=== PATIENT | male | born 1940 | race Caucasian/White ===

== ENCOUNTER 2016-09-27 09:24 | Day surgery (SDC) | payer BC, MEDICARE ==
[~2016-09-27 09:24] MED LIST: BESIFLOXACIN HCL 0.6% OPH SUSP 5 ML BOTTLE OD PRN; CHONDR SU A NA/HYALUR INTRAOC KIT (SURGICARE) ONE; CYCLOPENTOLATE 0.2%/PHENYLEPHRINE 1% OPH SOLN 2 ML OD PRN; KETOROLAC TROMETHAMINE 0.45% 4 DROP/0.4 ML DROPERETTE OD PRN; LIDOCAINE 1% INJ-PF (10 MG/ML) 30 ML SDV ONE; PHENYLEPHRINE/KETOROLAC 1%-0.3% 4 ML VIAL ONE; TETRACAINE HCL 0.5% OPH SOLN 0.6 ML DROPERETTE OD PRN; TOBRAMYCIN SULFATE/DEXAMETH OPH OINTMENT 3.5 GM ONE; TROPICAMIDE 1% OPH SOLN 3 ML OD PRN
== END 2016-09-27 10:23 | disposition home or self-care (01) ==
LOC: SC 09:24
PROVIDERS: ATTEND Ophthalmology
DX: R69 Illness, unspecified (principal)
CPT/HCPCS: C9447; J3490

== ENCOUNTER 2016-10-04 09:07 | Day surgery (SDC) | payer MEDICARE ==
[~2016-10-04 09:07] MED LIST changes: -BESIFLOXACIN HCL 0.6% OPH SUSP 5 ML BOTTLE OD PRN; -CYCLOPENTOLATE 0.2%/PHENYLEPHRINE 1% OPH SOLN 2 ML OD PRN; +EPINEPHRINE INJ/PF 1 MG/1 ML AMPULE ONE; +LIDOCAINE 4% INJ/PF (40 MG/ML) 5 ML AMPUL OD PRN; -TETRACAINE HCL 0.5% OPH SOLN 0.6 ML DROPERETTE OD PRN; -TROPICAMIDE 1% OPH SOLN 3 ML OD PRN
[2016-10-04] MEDS: TROPICAMIDE 1% OPH SOLN 3 ML OD PRN ×3 (09:43→10:03)
[2016-10-04] MEDS: CYCLOPENTOLATE 0.2%/PHENYLEPHRINE 1% OPH SOLN 2 ML OD PRN ×3 (09:44→10:03)
[2016-10-04] MEDS: BESIFLOXACIN HCL 0.6% OPH SUSP 5 ML BOTTLE OD PRN ×3 (09:45→10:36)
[2016-10-04] MEDS: TETRACAINE HCL 0.5% OPH SOLN 0.6 ML DROPERETTE OD PRN ×3 (09:46→10:12)
[2016-10-04] MEDS ORDERED: FENTANYL CITRATE INJ/PF 100 MCG/2 ML AMPUL ONE (09:56)
[2016-10-04] MEDS ORDERED: MIDAZOLAM 2 MG/2 ML INJ ONE (09:56)
== END 2016-10-04 11:59 | disposition home or self-care (01) ==
LOC: SC 09:07
PROVIDERS: ATTEND Ophthalmology
PROC: 08RJ3JZ Replacement of Right Lens with Synthetic Substitute, Percutaneous Approach (ICD-10-PCS; principal; 2016-10-04 10:00)
DX: H25.11 Age-related nuclear cataract, right eye (principal); F17.210 Nicotine dependence, cigarettes, uncomplicated; J44.9 Chronic obstructive pulmonary disease, unspecified; I10 Essential (primary) hypertension; Z86.73 Personal history of transient ischemic attack (TIA), and cerebral infarction without residual deficits
CPT/HCPCS: 66984; V2630; J2250; J3490 ×3; A9270; J3010; C9447; 142; J0171

== ENCOUNTER 2016-10-18 09:49 | Day surgery (SDC) | payer BC, MEDICARE, OTHER ==
[~2016-10-18 09:49] MED LIST changes: +BESIFLOXACIN HCL 0.6% OPH SUSP 5 ML BOTTLE OS PRN; -CHONDR SU A NA/HYALUR INTRAOC KIT (SURGICARE) ONE; +CYCLOPENTOLATE 0.2%/PHENYLEPHRINE 1% OPH SOLN 2 ML OS PRN; -EPINEPHRINE INJ/PF 1 MG/1 ML AMPULE ONE; -KETOROLAC TROMETHAMINE 0.45% 4 DROP/0.4 ML DROPERETTE OD PRN; +KETOROLAC TROMETHAMINE 0.45% 4 DROP/0.4 ML DROPERETTE OS PRN; -LIDOCAINE 1% INJ-PF (10 MG/ML) 30 ML SDV ONE; -LIDOCAINE 4% INJ/PF (40 MG/ML) 5 ML AMPUL OD PRN; +MIDAZOLAM 2 MG/2 ML INJ ONE; -PHENYLEPHRINE/KETOROLAC 1%-0.3% 4 ML VIAL ONE; +TETRACAINE HCL 0.5% OPH SOLN 0.6 ML DROPERETTE OS PRN; -TOBRAMYCIN SULFATE/DEXAMETH OPH OINTMENT 3.5 GM ONE; +TROPICAMIDE 1% OPH SOLN 3 ML OS PRN
[2016-10-18] MEDS ORDERED: CHONDR SU A NA/HYALUR INTRAOC KIT (SURGICARE) ONE (09:57)
[2016-10-18] MEDS ORDERED: TOBRAMYCIN SULFATE/DEXAMETH OPH OINTMENT 3.5 GM ONE (09:57)
[2016-10-18] MEDS ORDERED: LIDOCAINE 1% INJ-PF (10 MG/ML) 30 ML SDV ONE (09:57)
[2016-10-18] MEDS ORDERED: PHENYLEPHRINE/KETOROLAC 1%-0.3% 4 ML VIAL ONE (09:57)
== END 2016-10-18 11:39 | disposition home or self-care (01) ==
LOC: SC 09:49
PROVIDERS: ATTEND Ophthalmology
PROC: 08RK3JZ Replacement of Left Lens with Synthetic Substitute, Percutaneous Approach (ICD-10-PCS; principal; 2016-10-18 10:45)
DX: H25.12 Age-related nuclear cataract, left eye (principal); F17.210 Nicotine dependence, cigarettes, uncomplicated; Z96.1 Presence of intraocular lens; J44.9 Chronic obstructive pulmonary disease, unspecified
CPT/HCPCS: 66984; V2630; J2250; J3490 ×3; A9270; C9447; 142

== ENCOUNTER 2017-06-02 12:27 | Emergency (ER) | payer MEDICARE ==
[2017-06-02] MEDS ORDERED: TRAMADOL HCL 50 MG TABLET PO ONE ×2 (13:15→19:59)
--- NOTE | 2017-06-02 13:17 | ER Document Report ---
HPI - HPI Patient complains to provider of: left groin pain Onset: Other - 3 weeks Onset/Duration: Persistent, Better Pain Level: 4 Context: Patient states that he slipped on rocks in his yard 3 weeks ago and fell landing on his right side. Patient states since the fall he has had left groin pain. Patient states the pain has been improving gradually but is still present. Patient does report seeing his primary doctor and having x-rays of this area. Patient denies any urinary problems. Patient denies chest pain, back pain, or abdominal pain. Associated Symptoms: Other - Left groin pain. denies: Headache Exacerbated by: Movement, Walking Relieved by: Denies Similar symptoms previously: No Recently seen / treated by doctor: Yes - ROS ROS below otherwise negative: Yes Systems Reviewed and Negative: Yes All other systems reviewed and negative - CONSTITUTIONAL Constitutional: DENIES: Fever - NEURO Neurology: DENIES: Weakness - CARDIOVASCULAR Cardiovascular: DENIES: Chest pain - RESPIRATORY Respiratory: DENIES: Trouble Breathing, Coughing - GASTROINTESTINAL Gastrointestinal: DENIES: Abdominal Pain, Nausea, Patient vomiting - URINARY Urinary: DENIES: Dysuria - MUSCULOSKELETAL Musculoskeletal: REPORTS: Extremity pain - Left groin. DENIES: Back Pain - DERM Skin Color: Normal Skin Problems: None Past Medical History - General Information source: Patient - Social History Smoking Status: Current Every Day Smoker Smoking Education Provided: Yes Frequency of alcohol use: Occasional Drug Abuse: None Occupation: None Lives with: Alone Family History: Reviewed & Not Pertinent - Past Medical History Cardiac Medical History: Reports: Other - Peripheral edema for the past 6 months Denies: Hx Heart Attack, Hx Hypertension Neurological Medical History: Denies: Hx Cerebrovascular Accident, Hx Seizures GI Medical History: Denies: Hx Hepatitis, Hx Hiatal Hernia, Hx Ulcer Infectious Medical History: Denies: Hx Hepatitis Surgical Hx: Negative Past Surgical History: Denies: Hx Open Heart Surgery, Hx Pacemaker Vertical Provider Document - CONSTITUTIONAL Agree With Documented VS: Yes Exam Limitations: No Limitations General Appearance: WD/WN, No Apparent Distress - INFECTION CONTROL TRAVEL OUTSIDE OF THE [place] IN LAST 30 DAYS: No - HEENT HEENT: Atraumatic, Normocephalic - NECK Neck: Normal Inspection, Supple - RESPIRATORY Respiratory: Breath Sounds Normal, No Respiratory Distress O2 Sat by Pulse Oximetry: 97 - CARDIOVASCULAR Cardiovascular: Regular Rate, Regular Rhythm Pulses: Decreased: Posterior tibial - obtained with doppler bilat, Dorsalis pedis - obtained on r with doppler, absent on left Notes: Patient with bilateral 3+ pedal edema - GI/ABDOMEN Gastrointestinal: Abdomen Soft, Abdomen Non-Tender, No Organomegaly, Abdominal Mass - mass above umbilicus with bruit, Normal Bowel Sounds - REPRODUCTIVE Male Genitalia: Abnormal Inspection - Left scrotal tenderness with palpation, no inguinal lymphadenopathy, no penile drainage or discharge - BACK Back: Normal Inspection. negative: CVA Tenderness-Right, CVA Tenderness-Left Notes: No spinal midline tenderness, step-off, or deformity - MUSCULOSKELETAL/EXTREMETIES Musculoskeletal/Extremeties: MAEW, Tender - Mild tenderness to left anterior hip area, left groin area, no deformity, Edema - bilat pedal. negative: Eccymosis - NEURO Level of Consciousness: Awake, Alert, Appropriate Motor/Sensory: No Motor Deficit, No Sensory Deficit - DERM Integumentary: Warm, Dry, No Rash Course - Re-evaluation Re-evalutation: 06/02/17 15:[address] Avila regarding pt status, advises CT abd/pelvic with iv contrast. Patient updated regarding plan of care. Patient denies any complaints at present. 06/02/17 19:40 Dr Avila to bedside who advised consult with vascular surgery. 06/02/17 20:04 call placed to [facility]. 06/02/17 20:[address] Chong at [facility] and who advises outpatient follow-up in the office this week. Patient's information was provided to Dr. Chong in his office will call patient on Sunday morning with an appointment for this week. Advises giving patient good return precautions that he should return immediately or call 911 for any abdominal pain, back pain, lightheadedness dizziness or any concerning symptoms. Advised patient that he will be seen and have a CT scan and the plan will be to have patient set up for outpatient surgery to address his aneurysm. Does not feel that patient needs to be transferred as he is currently asymptomatic without any evidence of leaking. 06/02/17 22:00 Discussed plan of care with patient as well as his neighbor who is offering to stay with patient until his family can come into town and help him. Patient able to ambulate with minimal assist to the chair. Patient states he has a walker at home that he has been using. Patient continues without any chest pain , abdominal pain or back pain. Patient and his friend educated at length on worsening symptoms that patient should return immediately for and call 911 for. Patient encouraged to follow-up with a urologist as well for further evaluation of his epididymitis. Patient given contact information for Dr. Chong and advised that if his office staff do not speak with him on Sunday that patient should call Dr. Chong's office. Patient continues to deny any abdominal pain, chest pain, back pain, lightheadedness or dizziness. Patient only complains of left groin pain with ambulation. - Vital Signs Vital signs: Temp Pulse Resp BP Pulse Ox 98.9 F 74 18 129/69 H 97 06/02/17 12:37 06/02/17 12:37 06/02/17 12:37 06/02/17 12:37 06/02/17 12:37 - Laboratory Result Diagrams: 06/02/17 16:21 06/02/17 17:39 Laboratory results interpreted by me: 06/02/17 20:24 Labs- Entire Visit 06/02/17 06/02/17 06/02/17 15:10 16:21 16:21 WBC 7.4 RBC 4.65 Hgb 14.6 Hct 43.2 MCV 93 MCH 31.3 MCHC 33.8 RDW 14.0 Plt Count 186 Seg Neutrophils % 63.7 Lymphocytes % 23.6 Monocytes % 8.5 Eosinophils % 3.2 Basophils % 1.0 Absolute Neutrophils 4.7 Absolute Lymphocytes 1.7 Absolute Monocytes 0.6 Absolute Eosinophils 0.2 Absolute Basophils 0.1 Sodium Cancelled Potassium Cancelled Chloride Cancelled Carbon Dioxide Cancelled Anion Gap Cancelled BUN Cancelled Creatinine Cancelled Est GFR ( Amer) Cancelled Est GFR (Non-Af Amer) Cancelled Glucose Cancelled Calcium Cancelled Total Bilirubin Cancelled Direct Bilirubin Cancelled Neonat Total Bilirubin Cancelled Neonat Direct Bilirubin Cancelled Neonat Indirect Bili Cancelled AST Cancelled ALT Cancelled Alkaline Phosphatase Cancelled Total Protein Cancelled Albumin Cancelled Urine Color YELLOW Urine Appearance SLIGHTLY-CLOUDY Urine pH 5.0 Ur Specific [place] 1.026 Urine Protein 100 H Urine Glucose (UA) NEGATIVE Urine Ketones NEGATIVE Urine Blood MODERATE H Urine Nitrite NEGATIVE Urine Bilirubin NEGATIVE Urine Urobilinogen 2.0 H Ur Leukocyte Esterase NEGATIVE Urine WBC (Auto) 3 Urine RBC (Auto) 8 Urine Bacteria (Auto) TRACE Squamous Epi Cells Auto 1 Urine Mucus (Auto) MANY Urine Ascorbic Acid NEGATIVE 06/02/17 17:39 WBC RBC Hgb Hct MCV MCH MCHC RDW Plt Count Seg Neutrophils % Lymphocytes % Monocytes % Eosinophils % Basophils % Absolute Neutrophils Absolute Lymphocytes Absolute Monocytes Absolute Eosinophils Absolute Basophils Sodium 140.7 Potassium 4.5 Chloride 101 Carbon Dioxide 30 Anion Gap 10 BUN 22 H Creatinine 0.87 Est GFR ( Amer) > 60 Est GFR (Non-Af Amer) > 60 Glucose 94 Calcium 10.0 Total Bilirubin 0.5 Direct Bilirubin 0.3 Neonat Total Bilirubin Not Reportable Neonat Direct Bilirubin Not Reportable Neonat Indirect Bili Not Reportable AST 24 ALT 22 Alkaline Phosphatase 115 Total Protein 8.2 Albumin 4.1 Urine Color Urine Appearance Urine pH Ur Specific [place] Urine Protein Urine Glucose (UA) Urine Ketones Urine Blood Urine Nitrite Urine Bilirubin Urine Urobilinogen Ur Leukocyte Esterase Urine WBC (Auto) Urine RBC (Auto) Urine Bacteria (Auto) Squamous Epi Cells Auto Urine Mucus (Auto) Urine Ascorbic Acid - Diagnostic Test Radiology reviewed: Reports reviewed Discharge - Discharge Clinical Impression: Left groin pain, Epididymitis, Elevated blood pressure reading Abdominal aortic aneurysm Qualifiers: Presence of rupture: without rupture Qualified Code(s): I71.4 - Abdominal aortic aneurysm, without rupture Condition: Stable Disposition: HOME, SELF-CARE Instructions: Aortic Aneurysm ([facility]), Doxycycline ([facility]), Epididymitis ([facility]), Rocephin ([facility]) Additional Instructions: Return immediately for any new or worsening symptoms Followup with your primary care provider, call tomorrow to make a followup appointment Dr Chong, vascular surgeon at [facility], have his office staff call you on Sunday to make an appointment for this week. He states that he will have you have a repeat CT scan and will evaluate you that day and will make plans for outpatient surgery to repair your aneurysm. His office staff will give you additional information when they call you Sunday. It is important that if you are having any abdominal pain, back pain, lightheadedness, dizziness or any concerning symptoms that he go to the emergency department or call 911. Dr Alejandro Chong [address] [place] [phone] Your ultrasound additionally showed that he had epididymitis, follow-up with a urologist for further evaluation of this. Prescriptions: Doxycycline Hyclate 100 mg PO BID #20 capsule Tramadol HCl [Ultram 50 mg Tablet] 50 mg PO ASDIR PRN #20 tablet PRN Reason: Forms: Elevated Blood Pressure Referrals: AKHIL ROCHA PA [PHYSICIAN TAKE UP OPERATOR] - Follow up as needed [facility] [Provider Group] - Follow up as needed
--- NOTE | 2017-06-02 14:43 | RADIOLOGY REPORT (SQ) ---
EXAM DESCRIPTION: U/S SCROTUM W/DOPPLER COMPLETED DATE/TIME: 06/02/2017 2:35 pm REASON FOR STUDY: left scrotal pain COMPARISON: None. TECHNIQUE: Static and realtime bourgeois scale imaging of the scrotum and testes. Selected color Doppler and spectral images recorded to document blood flow. LIMITATIONS: None. FINDINGS: RIGHT: TESTICLE: Normal size. Normal echotexture. Normal blood flow. No mass. EPIDIDYMIS: Normal. HYDROCELE OR VARICOCELE: No. HERNIA OR EXTRA-TESTICULAR MASS: No. OTHER: No other significant finding. LEFT: TESTICLE: Normal size. Normal echotexture. Normal blood flow. No mass. EPIDIDYMIS: Heterogeneous echo pattern with prominent vessels. HYDROCELE OR VARICOCELE: No. HERNIA OR EXTRA-TESTICULAR MASS: No. OTHER: No other significant finding. IMPRESSION: No testicular mass or torsion. Left epididymitis. TECHNICAL DOCUMENTATION: JOB ID: [id number] [employer]- All Rights Reserved
[2017-06-02 15:36] LABS: APPEARANCE,URINE SLIGHTLY-CLOUDY; BILIRUBIN,URINE NEGATIVE (NEGATIVE); COLOR,URINE YELLOW; GLUCOSE, URINE NEGATIVE (NEGATIVE); KETONES,URINE NEGATIVE (NEGATIVE); LEUKOCYTE ESTERASE,URINE NEGATIVE (NEGATIVE); NITRITE,URINE NEGATIVE (NEGATIVE); PROTEIN,URINE 100 mg/dL (NEGATIVE); URINE SPECIFIC GRAVITY 1.026
--- NOTE | 2017-06-02 15:43 | RADIOLOGY REPORT (SQ) ---
EXAM DESCRIPTION: HIP LEFT AP/LATERAL COMPLETED DATE/TIME: 06/02/2017 3:26 pm REASON FOR STUDY: fall L hip COMPARISON: None. NUMBER OF VIEWS: Two views. TECHNIQUE: AP pelvis and additional frog-leg view of the left hip. LIMITATIONS: None. FINDINGS: MINERALIZATION: Normal. LEFT HIP: No fracture or dislocation. No worrisome bone lesions. RIGHT HIP: No fracture or dislocation. No worrisome bone lesions. PUBIS AND ISCHIUM: No fracture. PELVIS: No fracture. SACRUM: No fracture or dislocation. No worrisome bone lesions. LOWER LUMBAR SPINE: Degenerative changes SOFT TISSUES: Curvilinear calcification visualized partially over the lower abdomen. Highly suspicio us for a large abdominal aortic aneurysm. OTHER: No other significant finding. IMPRESSION: No acute fracture. Possible large abdominal aortic aneurysm. COMMENT: Pertinent findings on the imaging study reported as a CRITICAL RESULT to STONE CRUSHER OPERATOR in the ED at15 :37 on 06/02/2017. Category of Critical Result: Possible large abdominal aortic aneurysm. TECHNICAL DOCUMENTATION: JOB ID: [id number] [employer] All Rights Reserved
[2017-06-02] MEDS ORDERED: CEFTRIAXONE INJ 250 MG VIAL IV ONE (15:47)
[2017-06-02 16:41] LABS: ABSOLUTE BASOPHILS # (AUTO) 0.1 10^3/uL (0.0-0.2); ABSOLUTE EOSINOPHILS # (AUTO) 0.2 10^3/uL (0.0-0.6); ABSOLUTE LYMPHOCYTES (AUTO) 1.7 10^3/uL (0.5-4.7); ABSOLUTE MONOCYTES (AUTO) 0.6 10^3/uL (0.1-1.4); ABSOLUTE NEUT (AUTO) 4.7 10^3/uL (1.7-8.2); EOSINOPHILS % (AUTO) 3.2 % (0-6); HEMATOCRIT 43.2 % (37.9-51.0); HEMOGLOBIN 14.6 g/dL (13.5-17.0); LYMPHOCYTES % (AUTO) 23.6 % (13-45); MEAN CORPUSCULAR HEMOGLOBIN 31.3 pg (27.0-33.4); MEAN CORPUSCULAR HGB CONC 33.8 g/dL (32.0-36.0); MEAN CORPUSCULAR VOLUME 93 fl (80-97); MONOCYTES % (AUTO) 8.5 % (3-13); PLATELET COUNT 186 10^3/uL (150-450); RED BLOOD COUNT 4.65 10^6/uL (4.35-5.55); SEGMENTED NEUTROPHILS % (AUTO) 63.7 % (42-78); TOTAL CELLS COUNTED % (AUTO) 100 %; WHITE BLOOD COUNT 7.4 10^3/uL (4.0-10.5)
[2017-06-02 18:12] LABS: ALBUMIN 4.1 g/dL (3.5-5.0); BILIRUBIN,DIRECT 0.3 mg/dL (0.0-0.4); BILIRUBIN,TOTAL 0.5 mg/dL (0.2-1.3); BLOOD UREA NITROGEN 22 mg/dL (7-20); CARBON DIOXIDE 30 mmol/L (22-30); GLUCOSE 94 mg/dL (75-110); TOTAL PROTEIN 8.2 g/dL (6.3-8.2)
[2017-06-02 18:14] LABS: ALANINE AMINOTRANSFERASE 22 U/L (21-72); ALKALINE PHOSPHATASE 115 U/L (38-126); ASPARTATE AMINO TRANSFERASE 24 U/L (17-59)
[2017-06-02 18:15] LABS: ANION GAP 10 (5-19); CHLORIDE 101 mmol/L (98-107); POTASSIUM 4.5 mmol/L (3.6-5.0); SODIUM 140.7 mmol/L (137-145)
--- NOTE | 2017-06-02 19:17 | RADIOLOGY REPORT (SQ) ---
EXAM DESCRIPTION: CTA ABDOMEN/PELVIS W WO COMPLETED DATE/TIME: 06/02/2017 6:42 pm REASON FOR STUDY: 39; eval aorta COMPARISON: Left hip radiograph 06/02/2017 TECHNIQUE: CT scan of the abdominal aorta extending to the iliac bifurcation performed with and with out intravenous contrast using helical scanning technique with dynamic intravenous contrast injection . Images reviewed with lung, soft tissue, and bone windows. Reconstructed coronal and sagittal MPR im ages reviewed. All images stored on PACS. Advanced 3D imaging as volume rendering, MIPS, SSD performed? yes All CT scanners at this facility use dose modulation, iterative reconstruction, and/or weight based d osing when appropriate to reduce radiation dose to as low as reasonably achievable (ALARA). [facility]: Dose Right [facility]: CareDose [facility]: Dose Right [facility]: Teradose 4D [facility]: HelloNature CONTRAST TYPE AND DOSE: contrast/concentration: Isovue 370.00 mg/ml; Total Contrast Delivered: 100.0 ml; Total Saline Delivered: 90.0 ml RENAL FUNCTION: BUN 22; creatinine 0.87 LIMITATIONS: None. FINDINGS: NON-CONTRASTED IMAGING: Diffuse vascular calcifications to include major visceral branches . No significant renal or bladder calcifications. No other significant organ calcifications. POST-CONTRAST IMAGING: AORTA AND VESSELS: A large infrarenal saccular abdominal aortic aneurysm is present measuring 9.2 x 8 .1 cm in greatest axial dimension. This extends into the bilateral iliac artery is. There is no ishaan dence of retroperitoneal hemorrhage/leak. The celiac, superior mesenteric, and renal arteries are ea ch appropriately opacified. The internal and external iliac arteries are likewise appropriately opac ified. LUNG BASES: No significant findings. No nodules or infiltrates. LIVER: Incidental note is made of a right hepatic hemangioma measuring on the order of 3.1 x 2.8 cm SPLEEN: Normal size. No focal lesions. PANCREAS: No masses. No significant calcifications. No adjacent inflammation or peripancreatic fluid collections. Pancreatic duct not dilated. GALLBLADDER: No identified stones by CT criteria. No inflammatory changes to suggest cholecystitis. ADRENAL GLANDS: The adrenal glands each demonstrate nodular thickening with relatively decreased atte nuation, possibly on the basis of lipid rich adenomas. This can be better evaluated with dedicated C T or MR imaging. RIGHT KIDNEY AND URETER: No mass, calculi or urinary tract obstruction. LEFT KIDNEY AND URETER: No mass, calculi or urinary tract obstruction. RETROPERITONEUM: No retroperitoneal adenopathy, hemorrhage or masses. BOWEL AND PERITONEAL CAVITY: No masses or inflammatory changes. No free fluid or peritoneal masses. APPENDIX: Not visualized. ABDOMINAL WALL: No masses. No hernias. BONY STRUCTURES: Degenerative changes are seen of the spine and hips. No fractures. 3-D IMAGING: Confirms the above findings. OTHER: No other significant finding. IMPRESSION: 9.2 x 8.1 cm saccular infrarenal abdominal aortic aneurysm. No evidence of retroperiton eal hemorrhage/leak. Chronic and incidental findings as detailed above. TECHNICAL DOCUMENTATION: JOB ID: [id number] Quality ID # [id number]: Final reports with documentation of one or more dose reduction techniques (e.g., Au tomated exposure control, adjustment of the mA and/or kV according to patient size, use of iterative reconstruction technique) 2010 [employer]- All Rights Reserved
--- NOTE | 2017-06-02 19:47 | ER Document Report ---
Doctor's Note Notes: 06/02/17 19:44 I was asked to see this patient in consultation. In summary, this is a 76-year- old male who presents today status post fall 2 weeks ago. Patient states he was in his backyard staying on some rocks when he lost his balance. He landed on his left hip. Patient states he has been having some pain to his left groin since that time. Patient denies hitting his head. Patient denies any weakness or numbness of his legs. Patient does state 2 months ago he started to have some edema to bilateral lower extremities. He saw his primary care physician who put him on a "fluid pill". Patient denies any abdominal pain, lightheadedness, dizziness, weakness or numbness. On examination the patient's head is traumatic normocephalic. Neck is soft and supple. Heart and lung examination is unremarkable. Patient's abdomen has a palpable mass with a bruit consistent with an abdominal aortic aneurysm. There is no tenderness to palpation of the abdomen. Patient's back shows no tenderness or flank pain. exam shows no obvious masses, inguinal bruits, penile lesions, with some very mild tenderness to the left testicle region without swelling or scrotal erythema. Patient has some tenderness to palpation of the left medial hamstring at the attachment site proximally. No swelling, erythema, or induration. Patient has 2+ pitting edema to bilateral lower extremities. Patient does have pain upon flexion of the hip. No low back pain present. Given the above history and physical examination the STEAM PIPE FITTER performed x-rays as indicated. No acute fractures noted. Radiologist then noticed a possible aortic aneurysm. CT scan of the abdomen and pelvis as recorded. Patient still has no tenderness to palpation of the abdomen. He has no known history of aneurysms in his past. The patient's in the groin musculature is tender to palpation. No bruits to the left inguinal region. Patient has no distal tenderness to his lower extremities consistent with ischemia. Given the extent and size of this lesion, we will call vascular surgery for evaluation. Other labs and ultrasound is recorded.
[2017-06-02] MEDS ORDERED: NORMAL SALINE 1000 ML 500 ML IV ONE (19:58)
[2017-06-02 20:13] VITALS: BP 152/86
[2017-06-02] MEDS ORDERED: CIPROFLOXACIN HCL 500 MG TABLET PO ONE (20:25)
[2017-06-02] MEDS ORDERED: DOXYCYCLINE HYCLATE 100 MG TABLET PO ONE (20:33)
== END 2017-06-02 22:14 | disposition home or self-care (01) ==
LOC: ER 12:27
DX: I71.4 Abdominal aortic aneurysm, without rupture (principal); N45.1 Epididymitis; R03.0 Elevated blood-pressure reading, without diagnosis of hypertension; R10.30 Lower abdominal pain, unspecified; R60.0 Localized edema; F17.200 Nicotine dependence, unspecified, uncomplicated; Z71.6 Tobacco abuse counseling; Z91.81 History of falling
CPT/HCPCS: 99284; 96361; 96374; 36415; 87086; 85025; 80053; 81001; 73502; 76870; 93976; 74174; A9270 ×2; J7030; J0696

== ENCOUNTER 2017-08-17 09:35 | Inpatient (IN) | payer MEDICARE ==
[2017-08-17] MEDS ORDERED: DEXTROSE 50%-WATER 25 GM/50 ML DISP.SYRIN IV ONE (09:49)
[2017-08-17] MEDS ORDERED: DEXTROSE 40% GEL 15 GM TUBE ONE (09:49)
[2017-08-17] MEDS ORDERED: RINGERS SOLUTION,LACTATED 1,000 ML IV ONE (10:29)
--- NOTE | 2017-08-17 10:40 | ER Document Report ---
ED General - General Chief Complaint: General Weakness Stated Complaint: ALTERED MENTAL STATUS Time Seen by Provider: 08/17/17 10:11 Notes: Patient brought in by EMS after having been found by a frien to be unable to stand or walk and exceedingly weak. Friend checks on this patient about once a week, either in person or by phone. She went to check on him this morning and found him sitting in a chair, having urinated all over himself. He was unable to stand or walk or use his walker. He normally can walk with a walker and sometimes even walk without the walker. Patient denies any vomiting or diarrhea. Friend says she cleaned him up and he had had a bowel movement. Denies any abdominal pains, chest pains, shortness of breath or difficulty breathing, headache. Not sure if he has had any fever. Friend noted that he is having twitching of the right leg at that he has never had before. Also notes that he has a lesion on the right neck that is painful. Finally, both of his legs are swollen and the left one is erythematous from the mid lower leg down through the entire foot which is painful to touch or move. The right foot is swollen, but no erythema or pain to examine. Patient had an abdominal aortic aneurysm stented a couple of months ago at [facility]. All has gone well since that procedure and he went to rehab and then returned home about a month and a half ago. He has been doing well, according to the friend, and was his usual normal self 2 weeks ago. TRAVEL OUTSIDE OF THE [place] IN LAST 30 DAYS: No - Related Data Allergies/Adverse Reactions: No Known Allergies Allergy (Verified 06/02/17 12:27) Past Medical History - Social History Smoking Status: Current Some Day Smoker Frequency of alcohol use: Occasional Drug Abuse: None Family History: Reviewed & Not Pertinent Patient has suicidal ideation: No Patient has homicidal ideation: No - Past Medical History Cardiac Medical History: Reports: Hx Hypertension Pulmonary Medical History: Reports: Hx Asthma Neurological Medical History: Denies: Hx Cerebrovascular Accident, Hx Seizures Endocrine Medical History: Denies: Hx Diabetes Mellitus Type 1, Hx Diabetes Mellitus Type 2 Renal/ Medical History: Denies: Hx Benign Prostatic Hyperplasia Past Surgical History: Reports: Hx Abdominal Surgery - Stents and abdominal aortic aneurysm put in about 2 months ago.. Denies: Hx Open Heart Surgery - triple A repair, Hx Pacemaker Review of Systems - Review of Systems Notes: REVIEW OF SYSTEMS: CONSTITUTIONAL : Denies fever. Complains of generalized weakness. Patient is not a very reliable historian and is difficult to hear him because he speaks so quietly and softly. EENT: Denies eye, ear, nose or mouth or throat pain or other symptoms. CARDIOVASCULAR: Denies chest pain. RESPIRATORY: Denies cough, chest congestion, or shortness of breath. GASTROINTESTINAL: Denies abdominal pain or nausea, vomiting, or diarrhea. GENITOURINARY: Denies difficulty or painful urinating, urinary frequency, blood in urine. MUSCULOSKELETAL: Denies back or neck pain. Denies joint pain or swelling. Erythema from the mid left lower leg through the entire left foot and toes which is tender to touch or move. SKIN: Denies rash or skin lesions. Erythema left lower leg and particularly left foot. NEUROLOGICAL: Denies LOC or altered mental status. Denies headache. Denies sensory loss or motor deficits. No lateralizing signs. ALL OTHER SYSTEMS REVIEWED AND NEGATIVE. Physical Exam - Vital signs Vitals: Resp BP Pulse Ox 18 148/88 H 99 08/17/17 10:01 08/17/17 10:01 08/17/17 10:01 Interpretation: Normal, Hypertensive - Minimal - Notes Notes: PHYSICAL EXAMINATION: GENERAL: Ill-appearing, but in no acute distress. Vital signs are all essentially normal with a slight elevation of blood pressure. HEAD: Atraumatic, normocephalic. EYES: Pupils equal round and reactive to light, extraocular movements intact. ENT: oropharynx clear without exudates. Moist mucous membranes. NECK: Normal range of motion, supple. Right side of neck has about a 1 cm? Skin tag which looks like the top portion of it has been scratched off and it is black in color. Very tender to touch. LUNGS: Breath sounds clear and equal bilaterally. HEART: Regular rate and rhythm with +2/6 murmurs. Bilateral +2 edema of the lower extremities. ABDOMEN: Soft, nontender. No guarding or rebound. No masses. No bruits heard. BACK: No tenderness throughout entire back. EXTREMITIES: Normal range of motion without pain except for left lower leg and especially the left foot which is swollen, erythematous, warm to the touch, and very painful to touch as well. Patient denies having history of gout. Denies any injury to that foot. Good capillary refill of the toes of both feet. NEUROLOGICAL: Very soft, barely audible speech, unable to stand or walk. Occasional twitch noted of the right leg. Normal sensory, motor, and reflex exams. Awake, alert, and oriented x3. PSYCH: Normal mood, normal affect. SKIN: Warm, dry, no rashes. Course - Vital Signs Vital signs: Temp Pulse Resp BP Pulse Ox 97.5 F 76 17 162/78 H 98 08/17/17 10:10 08/17/17 10:10 08/17/17 10:10 08/17/17 10:10 08/17/17 10:10 - Laboratory Result Diagrams: 08/17/17 09:47 08/17/17 09:47 Laboratory results interpreted by me: 08/17/17 08/17/17 08/17/17 09:47 09:47 09:47 RBC 4.10 L Hgb 12.6 L Hct 37.7 L BUN 29 H POC Glucose 49 L Uric Acid 8.9 H Alkaline Phosphatase 149 H Creatine Kinase 407 H CK-MB (CK-2) Total Protein 8.7 H Urine Blood 08/17/17 08/17/17 09:47 11:20 RBC Hgb Hct BUN POC Glucose Uric Acid Alkaline Phosphatase Creatine Kinase CK-MB (CK-2) 5.13 H Total Protein Urine Blood LARGE H - Diagnostic Test Radiology reviewed: Image reviewed, Reports reviewed - CT scan of the brain shows no acute processes. No stroke. Radiology results interpreted by me: 08/17/17 12:37 X-ray of the chest shows no acute changes or pneumonia. X-ray of the left foot shows chronic arthritic changes, but no fractures or dislocations. Discharge - Discharge Clinical Impression: Cellulitis of left foot, Gout, Dehydration, Elevated CPK Disposition: ADMITTED INPATIENT Admitting Provider: Hospitalist Unit Admitted: Medical Floor
[2017-08-17 10:53] LABS: ABSOLUTE BASOPHILS # (AUTO) 0.1 10^3/uL (0.0-0.2); ABSOLUTE EOSINOPHILS # (AUTO) 0.1 10^3/uL (0.0-0.6); ABSOLUTE MONOCYTES (AUTO) 0.9 10^3/uL (0.1-1.4); ABSOLUTE NEUT (AUTO) 4.1 10^3/uL (1.7-8.2); EOSINOPHILS % (AUTO) 1.6 % (0-6); HEMATOCRIT 37.7 % (37.9-51.0); HEMOGLOBIN 12.6 g/dL (13.5-17.0); LYMPHOCYTES % (AUTO) 27.9 % (13-45); MEAN CORPUSCULAR HEMOGLOBIN 30.6 pg (27.0-33.4); MEAN CORPUSCULAR HGB CONC 33.3 g/dL (32.0-36.0); MEAN CORPUSCULAR VOLUME 92 fl (80-97); MONOCYTES % (AUTO) 12.5 % (3-13); PLATELET COUNT 207 10^3/uL (150-450); RED CELL DISTRIBUTION WIDTH 13.3 % (11.5-14.0); TOTAL CELLS COUNTED % (AUTO) 100 %; WHITE BLOOD COUNT 7.2 10^3/uL (4.0-10.5)
--- NOTE | 2017-08-17 11:05 | RADIOLOGY REPORT (SQ) ---
EXAM DESCRIPTION: CT HEAD WITHOUT COMPLETED DATE/TIME: 08/17/2017 10:51 am REASON FOR STUDY: Weak, unable to walk, twitching right leg COMPARISON: None. TECHNIQUE: Axial images acquired through the brain without intravenous contrast. Images reviewed wi th bone, brain and subdural windows. Images stored on PACS. All CT scanners at this facility use dose modulation, iterative reconstruction, and/or weight based d osing when appropriate to reduce radiation dose to as low as reasonably achievable (ALARA). [facility]: Dose Right [facility]: CareDose [facility]: Dose Right [facility]: Teradose 4D [facility]: Verix RADIATION DOSE: CT Rad equipment meets quality standard of care and radiation dose reduction techniq ues were employed. CTDIvol: 60.1 mGy. DLP: 1292 mGy-cm.mGy. LIMITATIONS: None. FINDINGS: VENTRICLES: Prominent. CEREBRUM: No masses. No hemorrhage. No midline shift. Areas of low density in the white matter mos t likely due to chronic micro-vascular ischemic change. No evidence for acute infarction. CEREBELLUM: No masses. No hemorrhage. No alteration of density. No evidence for acute infarction. EXTRAAXIAL SPACES: Age-related involutional change. No fluid collections. No masses. ORBITS AND GLOBE: No intra- or extraconal masses. Normal contour of globe without masses. CALVARIUM: No fracture. PARANASAL SINUSES: No fluid or mucosal thickening. SOFT TISSUES: No mass or hematoma. OTHER: No other significant finding. IMPRESSION: CHRONIC CHANGES OF ATROPHY AND MICROVASCULAR ISCHEMIA. NO ACUTE PROCESS. EVIDENCE OF ACUTE STROKE: NO. TECHNICAL DOCUMENTATION: JOB ID: [id number] Quality ID # [id number]: Final reports with documentation of one or more dose reduction techniques (e.g., Au tomated exposure control, adjustment of the mA and/or kV according to patient size, use of iterative reconstruction technique) 2010 [employer]- All Rights Reserved Reading location - IP/workstation name: [email or web address]
[2017-08-17 11:17] LABS: ALANINE AMINOTRANSFERASE 29 U/L (21-72); ALBUMIN 4.1 g/dL (3.5-5.0); ALKALINE PHOSPHATASE 149 U/L (38-126); ANION GAP 10 (5-19); ASPARTATE AMINO TRANSFERASE 36 U/L (17-59); BILIRUBIN,DIRECT 0.4 mg/dL (0.0-0.4); BILIRUBIN,TOTAL 0.6 mg/dL (0.2-1.3); BLOOD UREA NITROGEN 29 mg/dL (7-20); CALCIUM 9.8 mg/dL (8.4-10.2); CARBON DIOXIDE 30 mmol/L (22-30); CHLORIDE 103 mmol/L (98-107); CREATINE KINASE 407 U/L (55-170); GLUCOSE 98 mg/dL (75-110); LIPASE 256.8 U/L (23-300); POTASSIUM 4.1 mmol/L (3.6-5.0); SODIUM 142.9 mmol/L (137-145); TOTAL PROTEIN 8.7 g/dL (6.3-8.2); URIC ACID 8.9 mg/dL (3.5-8.5)
[2017-08-17 11:43] LABS: CREATINE KINASE MB 5.13 ng/mL (<4.55); TROPONIN I < 0.012 ng/mL
[2017-08-17 11:51] LABS: APPEARANCE,URINE CLEAR; BILIRUBIN,URINE NEGATIVE (NEGATIVE); COLOR,URINE STRAW; GLUCOSE, URINE NEGATIVE (NEGATIVE); KETONES,URINE NEGATIVE (NEGATIVE); LEUKOCYTE ESTERASE,URINE NEGATIVE (NEGATIVE); NITRITE,URINE NEGATIVE (NEGATIVE); PROTEIN,URINE NEGATIVE (NEGATIVE); URINE SPECIFIC GRAVITY 1.006; UROBILINOGEN,URINE NEGATIVE mg/dL (<2.0)
--- NOTE | 2017-08-17 12:13 | RADIOLOGY REPORT (SQ) ---
EXAM DESCRIPTION: FOOT LEFT COMPLETE COMPLETED DATE/TIME: 08/17/2017 11:33 am REASON FOR STUDY: Painful, red, swollen foot COMPARISON: None. NUMBER OF VIEWS: Three views. TECHNIQUE: AP, lateral and oblique radiographic images acquired of the left foot. LIMITATIONS: None. FINDINGS: MINERALIZATION: There is osteopenia. BONES: No acute fracture or dislocation. No worrisome bone lesions. JOINTS: There are degenerative changes in the 1st tarsal metatarsal joint. There is joint space narr owing and subchondral sclerosis. There is osteophytic spurring. SOFT TISSUES: There is diffuse soft tissue swelling dorsally. OTHER: No other significant finding. IMPRESSION: Osteopenia. Degenerative changes in the 1st metatarsal phalangeal joint. Soft tissue s welling dorsally. No acute fracture. TECHNICAL DOCUMENTATION: JOB ID: [id number] [employer]- All Rights Reserved Reading location - IP/workstation name: [email or web address]
--- NOTE | 2017-08-17 12:13 | RADIOLOGY REPORT (SQ) ---
EXAM DESCRIPTION: CHEST PA/LAT COMPLETED DATE/TIME: 08/17/2017 11:33 am REASON FOR STUDY: Altered mental status, swelling of legs COMPARISON: None. EXAM PARAMETERS: NUMBER OF VIEWS: two views TECHNIQUE: Digital Frontal and Lateral radiographic views of the chest acquired. RADIATION DOSE: NA LIMITATIONS: none FINDINGS: LUNGS AND PLEURA: The lungs are mildly hyperexpanded. There are no infiltrates or effusio ns. There is no mass. MEDIASTINUM AND HILAR STRUCTURES: No masses or contour abnormalities. HEART AND VASCULAR STRUCTURES: Heart normal size. No evidence for failure. BONES: No acute findings. HARDWARE: None in the chest. OTHER: No other significant finding. IMPRESSION: Chronic lung changes with no acute cardiopulmonary disease. COMMENT: There is a demographics mismatch warning TECHNICAL DOCUMENTATION: JOB ID: [id number] [employer]- All Rights Reserved Reading location - IP/workstation name: [email or web address]
--- NOTE | 2017-08-17 13:04 | EKG REPORT ---
SEVERITY:- ABNORMAL ECG - SINUS OR ECTOPIC ATRIAL RHYTHM RBBB AND LAFB : Confirmed by: Navjot Hunt MD 17-Aug-2017 13:03:38
[2017-08-17] MEDS ORDERED: ONDANSETRON HCL INJ/PF 4 MG/2 ML SDV IV PRN (13:08)
[2017-08-17] MEDS ORDERED: ACETAMINOPHEN 325 MG TABLET PO PRN (13:08)
[2017-08-17] MEDS ORDERED: OXYCODONE-ACETAMINOPHEN 5-325 MG TABLET PO PRN (13:08)
[2017-08-17] MEDS ORDERED: ALBUTEROL SULFATE 0.083% NEB 2.5 MG/3 ML AMPUL NEB PRN (13:08)
[2017-08-17] MEDS ORDERED: NORMAL SALINE 1000 ML 1,000 ML IV PRN (13:19)
[2017-08-17] MEDS ORDERED: CEFTRIAXONE 1 GM/D5W RTU 1 GM/50 ML RTUPB IV SCH (14:00)
[2017-08-17] MEDS: LORAZEPAM 1 MG TABLET PO SCH ×2 (14:18→21:36)
[2017-08-17] MEDS: IPRATROPIUM/ALBUTEROL 0.5-2.5 MG/3 ML AMPUL NEB SCH ×2 (14:18→20:55)
[2017-08-17] MEDS: HEPARIN SOD (PORCINE) 5,000 UNIT/ML 1 ML SYRINGE SUBCUT SCH ×2 (14:18→21:36)
[2017-08-17] MEDS: CEFTRIAXONE SODIUM 1,000 MG in NORMAL SALINE 100 ML IV SCH (14:26)
--- NOTE | 2017-08-17 15:36 | PDOC H&P ---
History of Present Illness Admission Date/PCP: 08/17/17 13:40 No PCP Patient complains of: Unable to obtain through patient due to mental status History of Present Illness: MANUEL FUENTES is a 77 year old male was brought into emergency room by his close female friend who checks on him on a regular basis. Accordingly when she went to check on him he was sitting on the sofa. She was unable to tell how long he had been in those circumstances. She went ahead and cleaned him up the patient and then he defecated on. She prompted to bring the patient to emergency room to be checked. Upon evaluation in emergency room there were some multiple complaints including redness and swelling of the left leg. In addition history retrieval through patient was difficult due to mental status. The hospitalist service was consulted and prompted to admit for further management Past Medical History Cardiac Medical History: Reports: Hypertension Pulmonary Medical History: Reports: Asthma EENT Medical History: Reports: None Neurological Medical History: Reports: None Denies: Seizures Endocrine Medical History: Reports: None Denies: Diabetes Mellitus Type 1, Diabetes Mellitus Type 2 Renal/ Medical History: Reports: None Malignancy Medical History: Reports: None GI Medical History: Reports: None Musculoskeltal Medical History: Reports: Arthritis Skin Medical History: Reports: None Psychiatric Medical History: Reports: None Traumatic Medical History: Reports: None Hematology: Denies: Anemia, Sickle Cell Disease Past Surgical History Past Surgical History: Denies: Pacemaker Social History Smoking Status: Current Some Day Smoker Amount of Alcoholic Beverages Per Day: Patient admits as to drinking alcohol but is unable to tell how much Hx Prescription Drug Abuse: No Family History Family History: Reviewed & Not Pertinent, Other - Unable to obtain from patient Parental Family History Reviewed: No Children Family History Reviewed: No Sibling(s) Family History Reviewed.: No Medication/Allergy Home Medications: Aspirin [Ecotrin 81 mg EC Tablet] 81 mg PO DAILY 08/17/17 Atorvastatin Calcium [Lipitor 40 mg Tablet] 40 mg PO QHS 08/17/17 Clopidogrel Bisulfate [Plavix] 75 mg PO DAILY 08/17/17 Metoprolol Succinate [Toprol Xl 25 mg Tab.sr] 25 mg PO DAILY 08/17/17 Mirtazapine [Remeron 15 mg Tablet] 15 mg PO QHS 08/17/17 Torsemide [Demadex 10 mg Tablet] 5 mg PO DAILYP PRN 08/17/17 Allergies/Adverse Reactions: No Known Allergies Allergy (Verified 06/02/17 12:27) Review of Systems ROS unobtainable: Due to mental status Physical Exam Vital Signs: Temp Pulse Resp BP Pulse Ox 97.5 F 60 28 H 142/78 H 100 08/17/17 10:10 08/17/17 13:00 08/17/17 14:01 08/17/17 14:01 08/17/17 14:01 General appearance: PRESENT: no acute distress, cooperative, other - Confused Head exam: PRESENT: atraumatic, normocephalic Eye exam: PRESENT: conjunctiva pink, EOMI, PERRLA Ear exam: PRESENT: normal external ear exam Mouth exam: PRESENT: moist Neck exam: PRESENT: full ROM. ABSENT: JVD, lymphadenopathy, tenderness, thyromegaly Respiratory exam: PRESENT: crackles, unlabored. ABSENT: tachypnea Cardiovascular exam: PRESENT: RRR. ABSENT: diastolic murmur, systolic murmur Vascular exam: PRESENT: normal capillary refill GI/Abdominal exam: PRESENT: normal bowel sounds, tenderness. ABSENT: distended Extremities exam: PRESENT: full ROM Musculoskeletal exam: PRESENT: ambulatory - 4+ pitting edema of LLE accompanied by redness. 3+ pitting edema of right foot with mild redness Neurological exam: PRESENT: awake, other - Appears confused. ABSENT: alert Psychiatric exam: PRESENT: appropriate affect Skin exam: PRESENT: erythema Results Impressions: Chest X-Ray 08/17/17 10:29 IMPRESSION: Chronic lung changes with no acute cardiopulmonary disease. Foot X-Ray 08/17/17 10:30 IMPRESSION: Osteopenia. Degenerative changes in the 1st metatarsal phalangeal joint. Soft tissue swelling dorsally. No acute fracture. Head CT 08/17/17 10:30 IMPRESSION: CHRONIC CHANGES OF ATROPHY AND MICROVASCULAR ISCHEMIA. NO ACUTE PROCESS. EVIDENCE OF ACUTE STROKE: NO. Assessment & Plan - Diagnosis (1) Elevated uric acid in blood Is this a current diagnosis for this admission?: Yes Plan: Information gathering is very limited. There is a possibility that he may have hyperuricemia. Medications are reviewed and there are no medications for the treatment of gout. Will be placed on Solu-Medrol IV (2) Altered mental status Qualifiers: Altered mental status type: somnolence Qualified Code(s): R40.0 - Somnolence Is this a current diagnosis for this admission?: Yes Plan: Will order ammonia level. To place on thiamine and ativan. (3) Cellulitis of left foot Is this a current diagnosis for this admission?: Yes Plan: Patient will be place on rocephin (4) Dehydration Is this a current diagnosis for this admission?: Yes Plan: Will hydrate gently (5) Elevated CPK Is this a current diagnosis for this admission?: Yes Plan: Gentle hydration (6) Alcohol abuse Is this a current diagnosis for this admission?: Yes Plan: Patient will be placed on thiamine, ativan and zyprexa for now until getting more information (8) COPD (chronic obstructive pulmonary disease) Qualifiers: Emphysema type: unspecified Is this a current diagnosis for this admission?: Yes Plan: Patient to be placed on nebulizer treatments - Time Time Spent: 50 to 70 Minutes Medications reviewed and adjusted accordingly: Yes Anticipated discharge: SNF Within: within 72 hours - Inpatient Certification Based on my medical assessment, after consideration of the patient's comorbidities, presenting symptoms, or acuity I expect that the services needed warrant INPATIENT care.: Yes I certify that my determination is in accordance with my understanding of Medicare's requirements for reasonable and necessary INPATIENT services [42 CFR 412.3e].: Yes Medical Necessity: Need Close Monitoring Due to Risk of Patient Decompensation, Need For IV Fluids, Need for Neurological Checks, Need for IV Antibiotics
[2017-08-17] MEDS ORDERED: BENZTROPINE MESYLATE 1 MG TABLET PO ONE (16:30)
[2017-08-17] MEDS ORDERED: OLANZAPINE 5 MG TAB.RAPDIS PO ONE (16:30)
--- NOTE | 2017-08-17 18:16 | RADIOLOGY REPORT (SQ) ---
EXAM DESCRIPTION: U/S ABDOMEN LIMITED W/O DOP COMPLETED DATE/TIME: 08/17/2017 5:53 pm REASON FOR STUDY: eval for cirrhosis COMPARISON: CT from 06/02/2017 TECHNIQUE: Dynamic and static grayscale images acquired of the abdomen and recorded on PACS. Clarisao jyoti selected color Doppler and spectral images recorded. LIMITATIONS: None. FINDINGS: PANCREAS: No masses. Visualized pancreatic duct normal caliber. LIVER: Hemangioma right hepatic lobe as seen on prior CT. No additional masses. Echotexture normal. LIVER VASCULATURE: Normal directional flow of the main portal vein and hepatic veins. GALLBLADDER: No stones. Normal wall thickness. No pericholecystic fluid. ULTRASOUND-DETECTED FERRERA'S SIGN: Negative. INTRAHEPATIC DUCTS AND COMMON DUCT: CBD and intrahepatic ducts normal caliber. No filling defects. INFERIOR VENA CAVA: Normal flow. AORTA: Relatively stable appearance of infrarenal abdominal aortic aneurysm with large false lumen me asuring up to 9 cm. RIGHT KIDNEY: Normal size. Normal echogenicity. No solid or suspicious masses. No hydronephrosis. No calcifications. PERITONEAL AND RIGHT PLEURAL SPACE: No ascites or effusions. OTHER: No other significant findings. IMPRESSION: BENIGN HEMANGIOMA STABLE FROM PRIOR CT. AORTIC ANEURYSM GROSSLY STABLE FROM PRIOR CT. OTHERWISE UNREMARKABLE RIGHT UPPER QUADRANT ULTRASOUND. TECHNICAL DOCUMENTATION: JOB ID: [id number] [employer]- All Rights Reserved Reading location - IP/workstation name: [email or web address]
[2017-08-17] MEDS: METHYLPREDNISOLONE INJ 40 MG/1 ML SDV IV SCH (18:31)
[2017-08-17] MEDS: OLANZAPINE 5 MG TAB.RAPDIS PO SCH (21:36)
[2017-08-17] MEDS: BENZTROPINE MESYLATE 1 MG TABLET PO SCH (21:36)
[2017-08-18] MEDS: HEPARIN SOD (PORCINE) 5,000 UNIT/ML 1 ML SYRINGE SUBCUT SCH ×3 (05:14→21:15)
[2017-08-18] MEDS: LORAZEPAM 1 MG TABLET PO SCH ×3 (05:14→23:38)
[2017-08-18] MEDS: METHYLPREDNISOLONE INJ 40 MG/1 ML SDV IV SCH (05:17)
[2017-08-18 06:59] LABS: ABSOLUTE LYMPHOCYTES (AUTO) 0.7 10^3/uL (0.5-4.7); ABSOLUTE MONOCYTES (AUTO) 0.2 10^3/uL (0.1-1.4); ABSOLUTE NEUT (AUTO) 3.4 10^3/uL (1.7-8.2); BASOPHILS % (AUTO) 0.5 % (0-2); EOSINOPHILS % (AUTO) 0.1 % (0-6); HEMATOCRIT 32.4 % (37.9-51.0); HEMOGLOBIN 10.9 g/dL (13.5-17.0); LYMPHOCYTES % (AUTO) 16.5 % (13-45); MEAN CORPUSCULAR HEMOGLOBIN 30.8 pg (27.0-33.4); MEAN CORPUSCULAR HGB CONC 33.7 g/dL (32.0-36.0); MEAN CORPUSCULAR VOLUME 91 fl (80-97); MONOCYTES % (AUTO) 3.9 % (3-13); PLATELET COUNT 155 10^3/uL (150-450); RED BLOOD COUNT 3.55 10^6/uL (4.35-5.55); RED CELL DISTRIBUTION WIDTH 13.1 % (11.5-14.0); TOTAL CELLS COUNTED % (AUTO) 100 %; WHITE BLOOD COUNT 4.3 10^3/uL (4.0-10.5)
[2017-08-18 07:43] LABS: ALANINE AMINOTRANSFERASE 26 U/L (21-72); ALBUMIN 3.1 g/dL (3.5-5.0); ALKALINE PHOSPHATASE 106 U/L (38-126); ANION GAP 8 (5-19); ASPARTATE AMINO TRANSFERASE 39 U/L (17-59); BILIRUBIN,DIRECT 0.4 mg/dL (0.0-0.4); BILIRUBIN,TOTAL 0.4 mg/dL (0.2-1.3); BLOOD UREA NITROGEN 26 mg/dL (7-20); CALCIUM 9.2 mg/dL (8.4-10.2); CARBON DIOXIDE 26 mmol/L (22-30); CHLORIDE 106 mmol/L (98-107); CREATINE KINASE 545 U/L (55-170); GLUCOSE 113 mg/dL (75-110); POTASSIUM 4.4 mmol/L (3.6-5.0); SODIUM 140.1 mmol/L (137-145); TOTAL PROTEIN 6.7 g/dL (6.3-8.2)
[2017-08-18] MEDS: IPRATROPIUM/ALBUTEROL 0.5-2.5 MG/3 ML AMPUL NEB SCH ×3 (08:40→20:55)
[2017-08-18] MEDS: THIAMINE HCL 100 MG TABLET PO SCH (11:06)
[2017-08-18] MEDS: CEFTRIAXONE SODIUM 1,000 MG in NORMAL SALINE 100 ML IV SCH (14:06)
--- NOTE | 2017-08-18 14:18 | PDOC PROGRESS REPORT ---
Subjective Progress Note for:: 08/18/17 Subjective:: No complaints. His daughter is at bedside and she came from [place]. Accordingly both herself and brother had been trying for him to move to [place]. Patient had 7 stents placed at [facility] in June. Patient went to rehab and was doing relatively well. Around 10 days ago her brother gave patient the keys of the car. Unfortunately, they found out that patient went back to smoking and drinking alcohol. Review of systems All consistencies except as in subjective. All laboratories and significant diagnostics have been reviewed Reason For Visit: AMS,CELLULITIS OF LLE Physical Exam Vital Signs: Temp Pulse Resp BP Pulse Ox 98.1 F 58 L 18 133/71 H 98 08/17/17 23:57 08/17/17 23:57 08/17/17 23:57 08/17/17 23:57 08/17/17 23:57 Intake & Output 08/17/17 08/18/17 08/19/17 06:59 06:59 06:59 Intake Total 1100 Output Total 900 Balance 200 Weight 67.2 kg General appearance: PRESENT: no acute distress, cooperative, well-developed, well-nourished Head exam: PRESENT: atraumatic, normocephalic Eye exam: PRESENT: conjunctiva pink, EOMI, PERRLA Ear exam: PRESENT: normal external ear exam Mouth exam: PRESENT: moist Neck exam: PRESENT: full ROM. ABSENT: JVD, lymphadenopathy, tenderness Respiratory exam: PRESENT: clear to auscultation shahab Cardiovascular exam: PRESENT: RRR. ABSENT: diastolic murmur, systolic murmur GI/Abdominal exam: PRESENT: normal bowel sounds, soft. ABSENT: tenderness Extremities exam: PRESENT: full ROM. ABSENT: pedal edema Musculoskeletal exam: PRESENT: ambulatory, other Neurological exam: PRESENT: alert, awake, oriented to person, oriented to place , CN II-XII grossly intact Psychiatric exam: PRESENT: appropriate affect, normal mood Skin exam: PRESENT: normal color, other Results Laboratory Results: 08/18/17 06:03 08/18/17 06:03 WBC 4.3 RBC 3.55 L Hgb 10.9 L Hct 32.4 L MCV 91 MCH 30.8 MCHC 33.7 RDW 13.1 Plt Count 155 Seg Neutrophils % 79.0 H Lymphocytes % 16.5 Monocytes % 3.9 Eosinophils % 0.1 Basophils % 0.5 Absolute Neutrophils 3.4 Absolute Lymphocytes 0.7 Absolute Monocytes 0.2 Absolute Eosinophils 0.0 Absolute Basophils 0.0 Impressions: Abdomen Ultrasound 08/17/17 00:00 IMPRESSION: BENIGN HEMANGIOMA STABLE FROM PRIOR CT. AORTIC ANEURYSM GROSSLY STABLE FROM PRIOR CT. OTHERWISE UNREMARKABLE RIGHT UPPER QUADRANT ULTRASOUND. Chest X-Ray 08/17/17 10:29 IMPRESSION: Chronic lung changes with no acute cardiopulmonary disease. Foot X-Ray 08/17/17 10:30 IMPRESSION: Osteopenia. Degenerative changes in the 1st metatarsal phalangeal joint. Soft tissue swelling dorsally. No acute fracture. Head CT 08/17/17 10:30 IMPRESSION: CHRONIC CHANGES OF ATROPHY AND MICROVASCULAR ISCHEMIA. NO ACUTE PROCESS. EVIDENCE OF ACUTE STROKE: NO. Assessment & Plan - Diagnosis (1) Elevated uric acid in blood Is this a current diagnosis for this admission?: Yes Plan: Unable to confirm a history of gout. And redness to left foot much improved. Will discontinue IV Solu-Medrol and placed on prednisone (2) Altered mental status Qualifiers: Altered mental status type: somnolence Qualified Code(s): R40.0 - Somnolence Is this a current diagnosis for this admission?: Yes Plan: Improved. Likely related to alcohol (3) Cellulitis of left foot Is this a current diagnosis for this admission?: Yes Plan: Improved and to continue Rocephin IV (4) Dehydration Is this a current diagnosis for this admission?: Yes Plan: Continue hydrating gently (5) Elevated CPK Is this a current diagnosis for this admission?: Yes Plan: Gentle hydration. Likely due to alcohol abuse (6) Alcohol abuse Is this a current diagnosis for this admission?: Yes Plan: Cotninue thiamine, ativan and zyprexa. Made aware that patient is unsafe in his current home situation and that he will benefit from placement and she agrees. (7) COPD (chronic obstructive pulmonary disease) Qualifiers: Emphysema type: unspecified Is this a current diagnosis for this admission?: Yes Plan: Continue nebulizer treatments (8) Tobacco abuse Is this a current diagnosis for this admission?: Yes Plan: To place patient on nicotine patch. Patient had been made aware for him to consider quitting smoking since he does have a history of coronary artery disease in addition he has a possible mass in his chest which may require further evaluation if deemed needed by his POA - Time Time Spent with patient: 15-24 minutes Medications reviewed and adjusted accordingly: Yes Anticipated discharge: SNF Within: when bed available - Inpatient Certification Based on my medical assessment, after consideration of the patient's comorbidities, presenting symptoms, or acuity I expect that the services needed warrant INPATIENT care.: Yes I certify that my determination is in accordance with my understanding of Medicare's requirements for reasonable and necessary INPATIENT services [42 CFR 412.3e].: Yes Medical Necessity: Need For IV Fluids, Need for IV Antibiotics
[2017-08-18] MEDS: MIRTAZAPINE 15 MG TABLET PO SCH (21:14)
[2017-08-18] MEDS: ATORVASTATIN CALCIUM 40 MG TABLET PO SCH (21:14)
[2017-08-18] MEDS: BENZTROPINE MESYLATE 1 MG TABLET PO SCH (21:14)
[2017-08-18] MEDS: OLANZAPINE 5 MG TAB.RAPDIS PO SCH (21:14)
[2017-08-19] MEDS: LORAZEPAM 1 MG TABLET PO SCH ×3 (04:58→21:40)
[2017-08-19] MEDS: HEPARIN SOD (PORCINE) 5,000 UNIT/ML 1 ML SYRINGE SUBCUT SCH ×3 (04:58→21:40)
[2017-08-19] MEDS: IPRATROPIUM/ALBUTEROL 0.5-2.5 MG/3 ML AMPUL NEB SCH ×3 (08:39→19:49)
[2017-08-19] MEDS: CLOPIDOGREL BISULFATE 75 MG TABLET PO SCH (09:55)
[2017-08-19] MEDS: THIAMINE HCL 100 MG TABLET PO SCH (09:56)
[2017-08-19] MEDS: ASPIRIN 81 MG TABLET, ENT COATED PO SCH (09:56)
[2017-08-19] MEDS: METOPROLOL SUCCINATE 25 MG TAB.SR.24H PO SCH (09:57)
[2017-08-19] MEDS ORDERED: PREDNISONE 20 MG TABLET PO SCH (10:00)
--- NOTE | 2017-08-19 14:19 | PDOC PROGRESS REPORT ---
Subjective Progress Note for:: 08/19/17 Subjective:: No complaints. His daughter is at bedside and she came from [place]. Accordingly both herself and brother had been trying for him to move to [place]. Patient had 7 stents placed at [facility] in June. Patient went to rehab and was doing relatively well. Around 10 days ago her brother gave patient the keys of the car. Unfortunately, they found out that patient went back to smoking and drinking alcohol. Daughter is at bedside since he thinks that if there is an accident his current insurance will cover for any damages Review of systems All consistencies except as in subjective. All laboratories and significant diagnostics have been reviewed Reason For Visit: AMS,CELLULITIS OF LLE Physical Exam Vital Signs: Temp Pulse Resp BP Pulse Ox 98.5 F 64 17 100/76 100 08/18/17 23:55 08/18/17 23:55 08/18/17 23:55 08/18/17 23:55 08/18/17 23:55 Intake & Output 08/18/17 08/19/17 08/20/17 06:59 06:59 06:59 Intake Total 1100 3080 Output Total 900 1415 Balance 200 1665 Weight 67.2 kg 71 kg General appearance: PRESENT: cooperative Head exam: PRESENT: atraumatic, normocephalic Eye exam: PRESENT: conjunctiva pink, EOMI, PERRLA Ear exam: PRESENT: normal external ear exam Mouth exam: PRESENT: moist Neck exam: PRESENT: JVD. ABSENT: lymphadenopathy, tenderness Respiratory exam: PRESENT: clear to auscultation shahab Cardiovascular exam: PRESENT: RRR. ABSENT: diastolic murmur, systolic murmur GI/Abdominal exam: PRESENT: normal bowel sounds, soft. ABSENT: tenderness Extremities exam: PRESENT: full ROM, +1 edema Musculoskeletal exam: PRESENT: other - Redness and swelling of left lower extremity resolving.. ABSENT: ambulatory Neurological exam: PRESENT: alert, awake, oriented to person, oriented to place Psychiatric exam: PRESENT: appropriate affect, normal mood Skin exam: PRESENT: intact, normal color Results Laboratory Results: 08/18/17 06:03 08/18/17 06:03 08/18/17 08/18/17 06:03 06:03 Sodium 140.1 Potassium 4.4 Chloride 106 Carbon Dioxide 26 Anion Gap 8 BUN 26 H Creatinine 0.83 Est GFR ( Amer) > 60 Est GFR (Non-Af Amer) > 60 Glucose 113 H Calcium 9.2 Phosphorus 5.0 H Magnesium 1.9 Total Bilirubin 0.4 AST 39 ALT 26 Alkaline Phosphatase 106 Total Protein 6.7 Albumin 3.1 L TSH 0.58 08/18/17 06:03 Creatine Kinase 545 H Impressions: Abdomen Ultrasound 08/17/17 00:00 IMPRESSION: BENIGN HEMANGIOMA STABLE FROM PRIOR CT. AORTIC ANEURYSM GROSSLY STABLE FROM PRIOR CT. OTHERWISE UNREMARKABLE RIGHT UPPER QUADRANT ULTRASOUND. Chest X-Ray 08/17/17 10:29 IMPRESSION: Chronic lung changes with no acute cardiopulmonary disease. Foot X-Ray 08/17/17 10:30 IMPRESSION: Osteopenia. Degenerative changes in the 1st metatarsal phalangeal joint. Soft tissue swelling dorsally. No acute fracture. Head CT 08/17/17 10:30 IMPRESSION: CHRONIC CHANGES OF ATROPHY AND MICROVASCULAR ISCHEMIA. NO ACUTE PROCESS. EVIDENCE OF ACUTE STROKE: NO. Assessment & Plan - Diagnosis (1) Elevated uric acid in blood Is this a current diagnosis for this admission?: Yes Plan: Patient has a history of gout many years ago (2) Altered mental status Qualifiers: Altered mental status type: somnolence Qualified Code(s): R40.0 - Somnolence Is this a current diagnosis for this admission?: Yes Plan: Resolved. (3) Cellulitis of left foot Is this a current diagnosis for this admission?: Yes Plan: Anticipate to transition to oral and to continue Rocephin IV for now (4) Dehydration Is this a current diagnosis for this admission?: Yes Plan: Resolved (5) Elevated CPK Is this a current diagnosis for this admission?: Yes Plan: Gentle hydration. Likely due to alcohol abuse (6) Alcohol abuse Is this a current diagnosis for this admission?: Yes Plan: Cotninue thiamine, ativan and zyprexa. Made aware that patient is unsafe in his current home situation and that he will benefit from placement and she agrees. Also is on a safe for him to drive due to alcohol abuse (7) COPD (chronic obstructive pulmonary disease) Qualifiers: Emphysema type: unspecified Is this a current diagnosis for this admission?: Yes Plan: Continue nebulizer treatments (8) Tobacco abuse Is this a current diagnosis for this admission?: Yes Plan: To place patient on nicotine patch. Patient had been made aware for him to consider quitting smoking since he does have a history of coronary artery disease in addition he has a possible mass in his chest which may require further evaluation if deemed needed by his POA - Time Time Spent with patient: 15-24 minutes Medications reviewed and adjusted accordingly: Yes Anticipated discharge: Acute Rehab Within: within 48 hours - Inpatient Certification Based on my medical assessment, after consideration of the patient's comorbidities, presenting symptoms, or acuity I expect that the services needed warrant INPATIENT care.: Yes I certify that my determination is in accordance with my understanding of Medicare's requirements for reasonable and necessary INPATIENT services [42 CFR 412.3e].: Yes Medical Necessity: Need Close Monitoring Due to Risk of Patient Decompensation, Need for IV Antibiotics
[2017-08-19] MEDS: CEFTRIAXONE SODIUM 1,000 MG in NORMAL SALINE 100 ML IV SCH (15:28)
[2017-08-19] MEDS: ATORVASTATIN CALCIUM 40 MG TABLET PO SCH (21:39)
[2017-08-19] MEDS: OLANZAPINE 5 MG TAB.RAPDIS PO SCH (21:39)
[2017-08-19] MEDS: MIRTAZAPINE 15 MG TABLET PO SCH (21:39)
[2017-08-19] MEDS: BENZTROPINE MESYLATE 1 MG TABLET PO SCH (21:39)
[2017-08-20] MEDS: HEPARIN SOD (PORCINE) 5,000 UNIT/ML 1 ML SYRINGE SUBCUT SCH ×3 (05:07→21:50)
[2017-08-20] MEDS: LORAZEPAM 1 MG TABLET PO SCH ×2 (05:07→13:36)
[2017-08-20] MEDS: IPRATROPIUM/ALBUTEROL 0.5-2.5 MG/3 ML AMPUL NEB SCH ×3 (09:09→20:33)
[2017-08-20] MEDS: METOPROLOL SUCCINATE 25 MG TAB.SR.24H PO SCH (10:03)
[2017-08-20] MEDS: CLOPIDOGREL BISULFATE 75 MG TABLET PO SCH (10:03)
[2017-08-20] MEDS: THIAMINE HCL 100 MG TABLET PO SCH (10:03)
[2017-08-20] MEDS: ASPIRIN 81 MG TABLET, ENT COATED PO SCH (10:03)
[2017-08-20] MEDS: CEFTRIAXONE SODIUM 1,000 MG in NORMAL SALINE 100 ML IV SCH (14:40)
--- NOTE | 2017-08-20 16:34 | PDOC PROGRESS REPORT ---
Subjective Progress Note for:: 08/20/17 Subjective:: No complaints. Review of systems All consistencies except as in subjective. All laboratories and significant diagnostics have been reviewed Reason For Visit: AMS,CELLULITIS OF LLE Physical Exam Vital Signs: Temp Pulse Resp BP Pulse Ox 97.7 F 59 L 16 117/61 95 08/19/17 23:39 08/19/17 23:39 08/19/17 23:39 08/19/17 23:39 08/19/17 23:39 Intake & Output 08/19/17 08/20/17 08/21/17 06:59 06:59 06:59 Intake Total 3080 2430 Output Total 1415 2350 Balance 1665 80 Weight 71 kg 73 kg General appearance: PRESENT: cooperative, well-developed, well-nourished Head exam: PRESENT: atraumatic, normocephalic Eye exam: PRESENT: conjunctiva pink, EOMI, PERRLA Ear exam: PRESENT: normal external ear exam Mouth exam: PRESENT: moist Neck exam: PRESENT: full ROM. ABSENT: JVD, lymphadenopathy, tenderness Respiratory exam: PRESENT: clear to auscultation shahab Cardiovascular exam: PRESENT: RRR. ABSENT: diastolic murmur, systolic murmur Vascular exam: PRESENT: normal capillary refill GI/Abdominal exam: PRESENT: normal bowel sounds, soft. ABSENT: tenderness Extremities exam: PRESENT: full ROM. ABSENT: pedal edema Musculoskeletal exam: ABSENT: ambulatory Neurological exam: PRESENT: alert, awake, oriented to person, oriented to place , CN II-XII grossly intact Psychiatric exam: PRESENT: appropriate affect, normal mood Skin exam: PRESENT: normal color - Redness and swelling resolved Results Laboratory Results: 08/18/17 06:03 08/18/17 06:03 08/18/17 06:03 Creatine Kinase 545 H Impressions: Abdomen Ultrasound 08/17/17 00:00 IMPRESSION: BENIGN HEMANGIOMA STABLE FROM PRIOR CT. AORTIC ANEURYSM GROSSLY STABLE FROM PRIOR CT. OTHERWISE UNREMARKABLE RIGHT UPPER QUADRANT ULTRASOUND. Chest X-Ray 08/17/17 10:29 IMPRESSION: Chronic lung changes with no acute cardiopulmonary disease. Foot X-Ray 08/17/17 10:30 IMPRESSION: Osteopenia. Degenerative changes in the 1st metatarsal phalangeal joint. Soft tissue swelling dorsally. No acute fracture. Head CT 08/17/17 10:30 IMPRESSION: CHRONIC CHANGES OF ATROPHY AND MICROVASCULAR ISCHEMIA. NO ACUTE PROCESS. EVIDENCE OF ACUTE STROKE: NO. Assessment & Plan - Diagnosis (1) Elevated uric acid in blood Is this a current diagnosis for this admission?: Yes Plan: Patient has a history of gout many years ago. Of steroids (2) Altered mental status Qualifiers: Altered mental status type: somnolence Qualified Code(s): R40.0 - Somnolence Is this a current diagnosis for this admission?: Yes Plan: Resolved. (3) Cellulitis of left foot Is this a current diagnosis for this admission?: Yes Plan: Resolved. Likely contributing to presentation. To place on Ceftin (4) Dehydration Is this a current diagnosis for this admission?: Yes Plan: Resolved (5) Elevated CPK Is this a current diagnosis for this admission?: Yes Plan: Gentle hydration. Likely due to alcohol abuse (6) Alcohol abuse Is this a current diagnosis for this admission?: Yes Plan: Decrease Ativan dose and continue thiamine and Zyprexa. (7) COPD (chronic obstructive pulmonary disease) Qualifiers: Emphysema type: unspecified Is this a current diagnosis for this admission?: Yes Plan: Continue nebulizer treatments (8) Tobacco abuse Is this a current diagnosis for this admission?: Yes Plan: To place patient on nicotine patch. Patient had been made aware for him to consider quitting smoking since he does have a history of coronary artery disease in addition he has a possible mass in his chest which may require further evaluation if deemed needed by his POA (9) CAD (coronary artery disease) Qualifiers: Coronary Disease-Associated Artery/Lesion type: unspecified vessel or lesion type [place] vs. transplanted heart: unspecified whether [place] or transplanted heart Associated angina: without angina Qualified Code(s): I25.10 - Atherosclerotic heart disease of [place] coronary artery without angina pectoris Is this a current diagnosis for this admission?: Yes Plan: Continue Plavix - Time Time Spent with patient: 15-24 minutes Medications reviewed and adjusted accordingly: Yes Anticipated discharge: Acute Rehab Within: when bed available - Inpatient Certification Based on my medical assessment, after consideration of the patient's comorbidities, presenting symptoms, or acuity I expect that the services needed warrant INPATIENT care.: Yes I certify that my determination is in accordance with my understanding of Medicare's requirements for reasonable and necessary INPATIENT services [42 CFR 412.3e].: Yes Medical Necessity: Need Close Monitoring Due to Risk of Patient Decompensation
[2017-08-20] MEDS ORDERED: LORAZEPAM 1 MG TABLET PO SCH (16:35)
[2017-08-20] MEDS: CEFUROXIME 500 MG TABLET PO SCH (17:33)
[2017-08-20] MEDS: OLANZAPINE 5 MG TAB.RAPDIS PO SCH (21:49)
[2017-08-20] MEDS: MIRTAZAPINE 15 MG TABLET PO SCH (21:49)
[2017-08-20] MEDS: LORAZEPAM 0.5 MG TABLET PO SCH (21:49)
[2017-08-20] MEDS: BENZTROPINE MESYLATE 1 MG TABLET PO SCH (21:49)
[2017-08-20] MEDS: ATORVASTATIN CALCIUM 40 MG TABLET PO SCH (21:49)
[2017-08-21] MEDS: CEFUROXIME 500 MG TABLET PO SCH ×2 (05:13→17:07)
[2017-08-21] MEDS: LORAZEPAM 0.5 MG TABLET PO SCH (05:13)
[2017-08-21] MEDS: HEPARIN SOD (PORCINE) 5,000 UNIT/ML 1 ML SYRINGE SUBCUT SCH ×3 (05:14→21:51)
[2017-08-21 07:07] LABS: ABSOLUTE BASOPHILS # (AUTO) 0.1 10^3/uL (0.0-0.2); ABSOLUTE EOSINOPHILS # (AUTO) 0.4 10^3/uL (0.0-0.6); ABSOLUTE MONOCYTES (AUTO) 0.9 10^3/uL (0.1-1.4); ABSOLUTE NEUT (AUTO) 4.8 10^3/uL (1.7-8.2); EOSINOPHILS % (AUTO) 5.2 % (0-6); HEMATOCRIT 35.5 % (37.9-51.0); HEMOGLOBIN 11.9 g/dL (13.5-17.0); LYMPHOCYTES % (AUTO) 24.5 % (13-45); MEAN CORPUSCULAR HEMOGLOBIN 30.9 pg (27.0-33.4); MEAN CORPUSCULAR HGB CONC 33.6 g/dL (32.0-36.0); MEAN CORPUSCULAR VOLUME 92 fl (80-97); MONOCYTES % (AUTO) 10.9 % (3-13); PLATELET COUNT 175 10^3/uL (150-450); RED BLOOD COUNT 3.86 10^6/uL (4.35-5.55); RED CELL DISTRIBUTION WIDTH 13.3 % (11.5-14.0); SEGMENTED NEUTROPHILS % (AUTO) 58.4 % (42-78); TOTAL CELLS COUNTED % (AUTO) 100 %; WHITE BLOOD COUNT 8.3 10^3/uL (4.0-10.5)
[2017-08-21 07:32] LABS: ALANINE AMINOTRANSFERASE 35 U/L (21-72); ALBUMIN 3.2 g/dL (3.5-5.0); ALKALINE PHOSPHATASE 101 U/L (38-126); ANION GAP 9 (5-19); ASPARTATE AMINO TRANSFERASE 37 U/L (17-59); BILIRUBIN,DIRECT 0.3 mg/dL (0.0-0.4); BILIRUBIN,TOTAL 0.3 mg/dL (0.2-1.3); BLOOD UREA NITROGEN 22 mg/dL (7-20); CALCIUM 9.1 mg/dL (8.4-10.2); CARBON DIOXIDE 26 mmol/L (22-30); CHLORIDE 108 mmol/L (98-107); GLUCOSE 83 mg/dL (75-110); POTASSIUM 4.2 mmol/L (3.6-5.0); SODIUM 143.4 mmol/L (137-145); TOTAL PROTEIN 6.9 g/dL (6.3-8.2)
[2017-08-21] MEDS: IPRATROPIUM/ALBUTEROL 0.5-2.5 MG/3 ML AMPUL NEB SCH ×3 (08:46→19:58)
[2017-08-21] MEDS: METOPROLOL SUCCINATE 25 MG TAB.SR.24H PO SCH (10:06)
[2017-08-21] MEDS: THIAMINE HCL 100 MG TABLET PO SCH (10:07)
[2017-08-21] MEDS: ASPIRIN 81 MG TABLET, ENT COATED PO SCH (10:07)
[2017-08-21] MEDS: CLOPIDOGREL BISULFATE 75 MG TABLET PO SCH (10:07)
[2017-08-21] MEDS: BENZTROPINE MESYLATE 1 MG TABLET PO SCH (21:51)
[2017-08-21] MEDS: MIRTAZAPINE 15 MG TABLET PO SCH (21:51)
[2017-08-21] MEDS: ATORVASTATIN CALCIUM 40 MG TABLET PO SCH (21:51)
[2017-08-22] MEDS: HEPARIN SOD (PORCINE) 5,000 UNIT/ML 1 ML SYRINGE SUBCUT SCH ×3 (04:47→21:37)
[2017-08-22] MEDS: CEFUROXIME 500 MG TABLET PO SCH ×2 (05:48→19:04)
[2017-08-22] MEDS: IPRATROPIUM/ALBUTEROL 0.5-2.5 MG/3 ML AMPUL NEB SCH ×3 (09:06→20:18)
[2017-08-22] MEDS: METOPROLOL SUCCINATE 25 MG TAB.SR.24H PO SCH (10:43)
[2017-08-22] MEDS: CLOPIDOGREL BISULFATE 75 MG TABLET PO SCH (10:43)
[2017-08-22] MEDS: THIAMINE HCL 100 MG TABLET PO SCH (10:43)
[2017-08-22] MEDS: ASPIRIN 81 MG TABLET, ENT COATED PO SCH (10:44)
--- NOTE | 2017-08-22 12:05 | PDOC PROGRESS REPORT ---
Subjective Progress Note for:: 08/22/17 Subjective:: No complaints. Review of systems All consistencies except as in subjective. All laboratories and significant diagnostics have been reviewed Reason For Visit: AMS,CELLULITIS OF LLE Physical Exam Vital Signs: Temp Pulse Resp BP Pulse Ox 98.7 F 68 18 141/81 H 99 08/21/17 23:34 08/21/17 23:34 08/21/17 23:34 08/21/17 23:34 08/21/17 23:34 Intake & Output 08/21/17 08/22/17 08/23/17 06:59 06:59 06:59 Intake Total 1050 704 Output Total 525 Balance 525 704 Weight 73 kg 73 kg General appearance: PRESENT: cooperative Head exam: PRESENT: atraumatic, normocephalic Eye exam: PRESENT: conjunctiva pink, EOMI, PERRLA Mouth exam: PRESENT: moist Neck exam: PRESENT: full ROM. ABSENT: JVD, lymphadenopathy, tenderness Respiratory exam: PRESENT: clear to auscultation shahab Cardiovascular exam: PRESENT: RRR. ABSENT: diastolic murmur, systolic murmur Vascular exam: PRESENT: normal capillary refill GI/Abdominal exam: PRESENT: normal bowel sounds, soft. ABSENT: tenderness Extremities exam: PRESENT: full ROM. ABSENT: pedal edema Musculoskeletal exam: PRESENT: ambulatory Neurological exam: PRESENT: alert, awake, oriented to person, oriented to place Psychiatric exam: PRESENT: appropriate affect, normal mood Skin exam: PRESENT: intact, normal color Results Laboratory Results: 08/21/17 06:49 08/21/17 06:49 08/21/17 08/21/17 06:49 06:49 WBC 8.3 RBC 3.86 L Hgb 11.9 L Hct 35.5 L MCV 92 MCH 30.9 MCHC 33.6 RDW 13.3 Plt Count 175 Seg Neutrophils % 58.4 Lymphocytes % 24.5 Monocytes % 10.9 Eosinophils % 5.2 Basophils % 1.0 Absolute Neutrophils 4.8 Absolute Lymphocytes 2.0 Absolute Monocytes 0.9 Absolute Eosinophils 0.4 Absolute Basophils 0.1 Sodium 143.4 Potassium 4.2 Chloride 108 H Carbon Dioxide 26 Anion Gap 9 BUN 22 H Creatinine 0.91 Est GFR ( Amer) > 60 Est GFR (Non-Af Amer) > 60 Glucose 83 Calcium 9.1 Magnesium 1.9 Total Bilirubin 0.3 AST 37 ALT 35 Alkaline Phosphatase 101 Total Protein 6.9 Albumin 3.2 L 08/18/17 08/20/17 06:03 17:35 Creatine Kinase 545 H 110 Impressions: Abdomen Ultrasound 08/17/17 00:00 IMPRESSION: BENIGN HEMANGIOMA STABLE FROM PRIOR CT. AORTIC ANEURYSM GROSSLY STABLE FROM PRIOR CT. OTHERWISE UNREMARKABLE RIGHT UPPER QUADRANT ULTRASOUND. Chest X-Ray 08/17/17 10:29 IMPRESSION: Chronic lung changes with no acute cardiopulmonary disease. Foot X-Ray 08/17/17 10:30 IMPRESSION: Osteopenia. Degenerative changes in the 1st metatarsal phalangeal joint. Soft tissue swelling dorsally. No acute fracture. Head CT 08/17/17 10:30 IMPRESSION: CHRONIC CHANGES OF ATROPHY AND MICROVASCULAR ISCHEMIA. NO ACUTE PROCESS. EVIDENCE OF ACUTE STROKE: NO. Assessment & Plan - Diagnosis (1) Elevated uric acid in blood Is this a current diagnosis for this admission?: Yes Plan: Patient has a history of gout many years ago. No further intervention (2) Altered mental status Qualifiers: Altered mental status type: disorientation Qualified Code(s): R41.0 - Disorientation, unspecified Is this a current diagnosis for this admission?: Yes Plan: Resolved with hydration and IV antibiotic treatment (3) Cellulitis of left foot Is this a current diagnosis for this admission?: Yes Plan: Resolved. Likely contributing to presentation. Continue Ceftin (4) Dehydration Is this a current diagnosis for this admission?: Yes Plan: Resolved (5) Elevated CPK Is this a current diagnosis for this admission?: Yes Plan: Gentle hydration. Likely due to alcohol abuse (6) Alcohol abuse Is this a current diagnosis for this admission?: Yes Plan: No signs of withdrawal. Continue thiamine, multivitamins. Discontinue Zyprexa. Patient requires placement (7) COPD (chronic obstructive pulmonary disease) Qualifiers: Emphysema type: unspecified Is this a current diagnosis for this admission?: Yes Plan: Continue nebulizer treatments as needed (8) Tobacco abuse Is this a current diagnosis for this admission?: Yes Plan: To place patient on nicotine patch. Patient had been made aware for him to consider quitting smoking since he does have a history of coronary artery disease in addition he has a possible mass in his chest which may require further evaluation if deemed needed by his POA (9) CAD (coronary artery disease) Qualifiers: Coronary Disease-Associated Artery/Lesion type: unspecified vessel or lesion type [place] vs. transplanted heart: unspecified whether [place] or transplanted heart Associated angina: without angina Qualified Code(s): I25.10 - Atherosclerotic heart disease of [place] coronary artery without angina pectoris Is this a current diagnosis for this admission?: Yes Plan: Continue Plavix (10) HTN (hypertension) Qualifiers: Hypertension type: essential hypertension Qualified Code(s): I10 - Essential (primary) hypertension Is this a current diagnosis for this admission?: Yes Plan: Add lisinopril since elevated - Time Time Spent with patient: Less than 15 minutes Medications reviewed and adjusted accordingly: Yes - Inpatient Certification Based on my medical assessment, after consideration of the patient's comorbidities, presenting symptoms, or acuity I expect that the services needed warrant INPATIENT care.: Yes I certify that my determination is in accordance with my understanding of Medicare's requirements for reasonable and necessary INPATIENT services [42 CFR 412.3e].: Yes Medical Necessity: Need Close Monitoring Due to Risk of Patient Decompensation
--- NOTE | 2017-08-22 14:13 | PDOC PROGRESS REPORT ---
Subjective Progress Note for:: 08/21/17 Subjective:: No complaints. Son is at bedside and patient is quite somnolent Review of systems All consistencies except as in subjective. All laboratories and significant diagnostics have been reviewed Reason For Visit: AMS,CELLULITIS OF LLE Physical Exam Vital Signs: Temp Pulse Resp BP Pulse Ox 98.0 F 64 17 144/64 H 95 08/20/17 23:49 08/20/17 23:49 08/20/17 23:49 08/20/17 23:49 08/20/17 23:49 Intake & Output 08/20/17 08/21/17 08/22/17 06:59 06:59 06:59 Intake Total 2430 1050 Output Total 2350 525 Balance 80 525 Weight 73 kg 73 kg General appearance: PRESENT: cooperative Head exam: PRESENT: atraumatic, normocephalic Eye exam: PRESENT: EOMI Mouth exam: PRESENT: moist Neck exam: PRESENT: full ROM. ABSENT: JVD, lymphadenopathy, tenderness Respiratory exam: PRESENT: clear to auscultation shahab Cardiovascular exam: PRESENT: RRR. ABSENT: diastolic murmur, systolic murmur Vascular exam: PRESENT: normal capillary refill GI/Abdominal exam: PRESENT: normal bowel sounds, soft. ABSENT: tenderness Extremities exam: PRESENT: full ROM. ABSENT: pedal edema Musculoskeletal exam: PRESENT: ambulatory Neurological exam: PRESENT: altered, other - somnolent Skin exam: PRESENT: intact, normal color Results Laboratory Results: 08/21/17 06:49 08/21/17 06:49 08/21/17 08/21/17 06:49 06:49 WBC 8.3 RBC 3.86 L Hgb 11.9 L Hct 35.5 L MCV 92 MCH 30.9 MCHC 33.6 RDW 13.3 Plt Count 175 Seg Neutrophils % 58.4 Lymphocytes % 24.5 Monocytes % 10.9 Eosinophils % 5.2 Basophils % 1.0 Absolute Neutrophils 4.8 Absolute Lymphocytes 2.0 Absolute Monocytes 0.9 Absolute Eosinophils 0.4 Absolute Basophils 0.1 Sodium 143.4 Potassium 4.2 Chloride 108 H Carbon Dioxide 26 Anion Gap 9 BUN 22 H Creatinine 0.91 Est GFR ( Amer) > 60 Est GFR (Non-Af Amer) > 60 Glucose 83 Calcium 9.1 Magnesium 1.9 Total Bilirubin 0.3 AST 37 ALT 35 Alkaline Phosphatase 101 Total Protein 6.9 Albumin 3.2 L 08/18/1718 06:03 17:35 Creatine Kinase 545 H 110 Impressions: Abdomen Ultrasound 08/17/17 00:00 IMPRESSION: BENIGN HEMANGIOMA STABLE FROM PRIOR CT. AORTIC ANEURYSM GROSSLY STABLE FROM PRIOR CT. OTHERWISE UNREMARKABLE RIGHT UPPER QUADRANT ULTRASOUND. Chest X-Ray 08/17/17 10:29 IMPRESSION: Chronic lung changes with no acute cardiopulmonary disease. Foot X-Ray 08/17/17 10:30 IMPRESSION: Osteopenia. Degenerative changes in the 1st metatarsal phalangeal joint. Soft tissue swelling dorsally. No acute fracture. Head CT 08/17/17 10:30 IMPRESSION: CHRONIC CHANGES OF ATROPHY AND MICROVASCULAR ISCHEMIA. NO ACUTE PROCESS. EVIDENCE OF ACUTE STROKE: NO. Assessment & Plan - Diagnosis (1) Elevated uric acid in blood Is this a current diagnosis for this admission?: Yes Plan: Patient has a history of gout many years ago. No further intervention (2) Altered mental status Qualifiers: Altered mental status type: disorientation Qualified Code(s): R41.0 - Disorientation, unspecified Is this a current diagnosis for this admission?: Yes Plan: Resolved with hydration and IV antibiotic treatment (3) Cellulitis of left foot Is this a current diagnosis for this admission?: Yes Plan: Resolved. Likely contributing to presentation. Continue Ceftin (4) Dehydration Is this a current diagnosis for this admission?: Yes Plan: Resolved (5) Elevated CPK Is this a current diagnosis for this admission?: Yes Plan: Gentle hydration. Likely due to alcohol abuse (6) Alcohol abuse Is this a current diagnosis for this admission?: Yes Plan: No signs of withdrawal. Continue thiamine, multivitamins. Discontinue Zyprexa. Patient requires placement (7) COPD (chronic obstructive pulmonary disease) Qualifiers: Emphysema type: unspecified Is this a current diagnosis for this admission?: Yes Plan: Continue nebulizer treatments as needed (8) Tobacco abuse Is this a current diagnosis for this admission?: Yes Plan: To place patient on nicotine patch. Patient had been made aware for him to consider quitting smoking since he does have a history of coronary artery disease in addition he has a possible mass in his chest which may require further evaluation if deemed needed by his POA (9) CAD (coronary artery disease) Qualifiers: Coronary Disease-Associated Artery/Lesion type: unspecified vessel or lesion type [place] vs. transplanted heart: unspecified whether [place] or transplanted heart Associated angina: without angina Qualified Code(s): I25.10 - Atherosclerotic heart disease of [place] coronary artery without angina pectoris Is this a current diagnosis for this admission?: Yes Plan: Continue Plavix - Time Time Spent with patient: 15-24 minutes Medications reviewed and adjusted accordingly: Yes Anticipated discharge: Acute Rehab Within: when bed available - Inpatient Certification Based on my medical assessment, after consideration of the patient's comorbidities, presenting symptoms, or acuity I expect that the services needed warrant INPATIENT care.: Yes I certify that my determination is in accordance with my understanding of Medicare's requirements for reasonable and necessary INPATIENT services [42 CFR 412.3e].: Yes Medical Necessity: Need Close Monitoring Due to Risk of Patient Decompensation
[2017-08-22] MEDS: LISINOPRIL 10 MG TABLET PO SCH (16:04)
[2017-08-22] MEDS: ATORVASTATIN CALCIUM 40 MG TABLET PO SCH (21:29)
[2017-08-22] MEDS: MIRTAZAPINE 15 MG TABLET PO SCH (21:29)
[2017-08-23] MEDS: HEPARIN SOD (PORCINE) 5,000 UNIT/ML 1 ML SYRINGE SUBCUT SCH ×3 (05:40→21:34)
[2017-08-23] MEDS: CEFUROXIME 500 MG TABLET PO SCH ×2 (05:56→17:46)
[2017-08-23] MEDS: IPRATROPIUM/ALBUTEROL 0.5-2.5 MG/3 ML AMPUL NEB SCH ×3 (07:33→20:34)
[2017-08-23] MEDS: CLOPIDOGREL BISULFATE 75 MG TABLET PO SCH (09:19)
[2017-08-23] MEDS: ASPIRIN 81 MG TABLET, ENT COATED PO SCH (09:19)
[2017-08-23] MEDS: THIAMINE HCL 100 MG TABLET PO SCH (09:19)
[2017-08-23] MEDS: METOPROLOL SUCCINATE 25 MG TAB.SR.24H PO SCH (09:19)
--- NOTE | 2017-08-23 10:55 | PDOC PROGRESS REPORT ---
Subjective Progress Note for:: 08/23/17 Subjective:: No complaints. States that feels better. Review of systems All consistencies except as in subjective. All laboratories and significant diagnostics have been reviewed Reason For Visit: AMS,CELLULITIS OF LLE Physical Exam Vital Signs: Temp Pulse Resp BP Pulse Ox 98.9 F 68 16 127/62 H 99 08/22/17 23:38 08/22/17 23:38 08/22/17 23:38 08/22/17 23:38 08/22/17 23:38 Intake & Output 08/22/17 08/23/17 08/24/17 06:59 06:59 06:59 Intake Total 704 777 Output Total 400 Balance 704 377 Weight 73 kg 66.5 kg General appearance: PRESENT: no acute distress, cooperative, well-developed, well-nourished Head exam: PRESENT: atraumatic, normocephalic Eye exam: PRESENT: conjunctiva pink, EOMI, PERRLA Ear exam: PRESENT: normal external ear exam, TM's normal bilaterally Mouth exam: PRESENT: moist Neck exam: PRESENT: full ROM. ABSENT: JVD, lymphadenopathy, tenderness, thyromegaly Respiratory exam: PRESENT: clear to auscultation shahab Cardiovascular exam: PRESENT: RRR. ABSENT: diastolic murmur, systolic murmur Vascular exam: PRESENT: normal capillary refill GI/Abdominal exam: PRESENT: normal bowel sounds, soft. ABSENT: tenderness Extremities exam: PRESENT: full ROM. ABSENT: pedal edema Musculoskeletal exam: PRESENT: ambulatory Neurological exam: PRESENT: alert, awake, oriented to person, oriented to place Psychiatric exam: PRESENT: appropriate affect, normal mood Skin exam: PRESENT: normal color Results Laboratory Results: 08/21/17 06:49 08/21/17 06:49 08/18/17 08/20/17 06:03 17:35 Creatine Kinase 545 H 110 Impressions: Abdomen Ultrasound 08/17/17 00:00 IMPRESSION: BENIGN HEMANGIOMA STABLE FROM PRIOR CT. AORTIC ANEURYSM GROSSLY STABLE FROM PRIOR CT. OTHERWISE UNREMARKABLE RIGHT UPPER QUADRANT ULTRASOUND. Chest X-Ray 08/17/17 10:29 IMPRESSION: Chronic lung changes with no acute cardiopulmonary disease. Foot X-Ray 08/17/17 10:30 IMPRESSION: Osteopenia. Degenerative changes in the 1st metatarsal phalangeal joint. Soft tissue swelling dorsally. No acute fracture. Head CT 08/17/17 10:30 IMPRESSION: CHRONIC CHANGES OF ATROPHY AND MICROVASCULAR ISCHEMIA. NO ACUTE PROCESS. EVIDENCE OF ACUTE STROKE: NO. Assessment & Plan - Diagnosis (1) Elevated uric acid in blood Is this a current diagnosis for this admission?: Yes Plan: Patient has a history of gout many years ago. Repeat uric acid level (2) Altered mental status Qualifiers: Altered mental status type: disorientation Qualified Code(s): R41.0 - Disorientation, unspecified Is this a current diagnosis for this admission?: Yes Plan: Resolved with hydration and IV antibiotic treatment. Mental status improved during hospitalization (3) Cellulitis of left foot Is this a current diagnosis for this admission?: Yes Plan: Resolved. Likely contributing to presentation. Continue Ceftin (4) Dehydration Is this a current diagnosis for this admission?: Yes Plan: Resolved (5) Elevated CPK Is this a current diagnosis for this admission?: Yes Plan: Likely due to alcohol. Trending downward (6) Alcohol abuse Is this a current diagnosis for this admission?: Yes Plan: No signs of withdrawal. Continue thiamine, multivitamins. Patient requires placement (7) COPD (chronic obstructive pulmonary disease) Qualifiers: Emphysema type: unspecified Is this a current diagnosis for this admission?: Yes Plan: Continue nebulizer treatments as needed (8) Tobacco abuse Is this a current diagnosis for this admission?: Yes Plan: Continue nicotine patch. Patient had been made aware for him to consider quitting smoking since he does have a history of coronary artery disease in addition he has a possible mass in his chest which may require further evaluation if deemed needed by his POA (9) CAD (coronary artery disease) Qualifiers: Coronary Disease-Associated Artery/Lesion type: unspecified vessel or lesion type [place] vs. transplanted heart: unspecified whether [place] or transplanted heart Associated angina: without angina Qualified Code(s): I25.10 - Atherosclerotic heart disease of [place] coronary artery without angina pectoris Is this a current diagnosis for this admission?: Yes Plan: Continue Plavix and low dose aspirin - Time Time Spent with patient: Less than 15 minutes Medications reviewed and adjusted accordingly: Yes Anticipated discharge: Acute Rehab Within: when bed available - Inpatient Certification Based on my medical assessment, after consideration of the patient's comorbidities, presenting symptoms, or acuity I expect that the services needed warrant INPATIENT care.: Yes I certify that my determination is in accordance with my understanding of Medicare's requirements for reasonable and necessary INPATIENT services [42 CFR 412.3e].: Yes Medical Necessity: Need Close Monitoring Due to Risk of Patient Decompensation
[2017-08-23] MEDS: LISINOPRIL 10 MG TABLET PO SCH (14:58)
--- NOTE | 2017-08-23 16:11 | RADIOLOGY REPORT (SQ) ---
EXAM DESCRIPTION: CT HEAD WITHOUT COMPLETED DATE/TIME: 08/23/2017 3:48 pm REASON FOR STUDY: AMS COMPARISON: 08/17/2017 TECHNIQUE: Axial images acquired through the brain without intravenous contrast. Images reviewed wi th bone, brain and subdural windows. Images stored on PACS. All CT scanners at this facility use dose modulation, iterative reconstruction, and/or weight based d osing when appropriate to reduce radiation dose to as low as reasonably achievable (ALARA). [facility]: Dose Right [facility]: CareDose [facility]: Dose Right [facility]: Teradose 4D [facility]: Smart Mr Banana RADIATION DOSE: CT Rad equipment meets quality standard of care and radiation dose reduction techniq ues were employed. CTDIvol: 49.0 mGy. DLP: 881 mGy-cm. mGy. LIMITATIONS: None. FINDINGS: VENTRICLES: Prominent ventricles secondary to involutional atrophy. CEREBRUM: Cortical atrophy. No masses. No hemorrhage. No midline shift. No evidence for acute inf arction. Extensive areas of low density in the white matter most likely chronic small vessel ischemic changes. CEREBELLUM: No masses. No hemorrhage. No alteration of density. No evidence for acute infarction. EXTRAAXIAL SPACES: No fluid collections. No masses. ORBITS AND GLOBE: No intra- or extraconal masses. Normal contour of globe without masses. CALVARIUM: No fracture. PARANASAL SINUSES: No fluid or mucosal thickening. SOFT TISSUES: No mass or hematoma. OTHER: No other significant finding. IMPRESSION: MICROVASCULAR ISCHEMIA AND GENERALIZED ATROPHY. NO ACUTE IMAGING FINDINGS IN THE BRAIN EVIDENCE OF ACUTE STROKE: NO. COMMENT: Quality ID # [id number]: Final reports with documentation of one or more dose reduction techniques (e.g., Automated exposure control, adjustment of the mA and/or kV according to patient size, use of iterative reconstruction technique) TECHNICAL DOCUMENTATION: JOB ID: [id number] [employer]- All Rights Reserved Reading location - IP/workstation name: [email or web address]
[2017-08-23] MEDS: ATORVASTATIN CALCIUM 40 MG TABLET PO SCH (21:33)
[2017-08-23] MEDS: MIRTAZAPINE 15 MG TABLET PO SCH (21:33)
[2017-08-24] MEDS: CEFUROXIME 500 MG TABLET PO SCH ×2 (05:08→18:08)
[2017-08-24 05:10] LABS: ABSOLUTE BASOPHILS # (AUTO) 0.1 10^3/uL (0.0-0.2); ABSOLUTE EOSINOPHILS # (AUTO) 0.6 10^3/uL (0.0-0.6); ABSOLUTE LYMPHOCYTES (AUTO) 1.8 10^3/uL (0.5-4.7); ABSOLUTE NEUT (AUTO) 4.6 10^3/uL (1.7-8.2); BASOPHILS % (AUTO) 0.9 % (0-2); EOSINOPHILS % (AUTO) 7.5 % (0-6); HEMATOCRIT 35.3 % (37.9-51.0); HEMOGLOBIN 11.8 g/dL (13.5-17.0); LYMPHOCYTES % (AUTO) 22.5 % (13-45); MEAN CORPUSCULAR HEMOGLOBIN 30.8 pg (27.0-33.4); MEAN CORPUSCULAR HGB CONC 33.3 g/dL (32.0-36.0); MEAN CORPUSCULAR VOLUME 92 fl (80-97); MONOCYTES % (AUTO) 12.6 % (3-13); PLATELET COUNT 199 10^3/uL (150-450); RED BLOOD COUNT 3.83 10^6/uL (4.35-5.55); RED CELL DISTRIBUTION WIDTH 13.4 % (11.5-14.0); SEGMENTED NEUTROPHILS % (AUTO) 56.5 % (42-78); TOTAL CELLS COUNTED % (AUTO) 100 %; WHITE BLOOD COUNT 8.1 10^3/uL (4.0-10.5)
[2017-08-24] MEDS: HEPARIN SOD (PORCINE) 5,000 UNIT/ML 1 ML SYRINGE SUBCUT SCH ×3 (05:11→22:21)
[2017-08-24 05:38] LABS: ALANINE AMINOTRANSFERASE 48 U/L (21-72); ALBUMIN 3.4 g/dL (3.5-5.0); ALKALINE PHOSPHATASE 133 U/L (38-126); ANION GAP 9 (5-19); ASPARTATE AMINO TRANSFERASE 44 U/L (17-59); BILIRUBIN,DIRECT 0.1 mg/dL (0.0-0.4); BILIRUBIN,TOTAL 0.2 mg/dL (0.2-1.3); BLOOD UREA NITROGEN 33 mg/dL (7-20); CALCIUM 9.3 mg/dL (8.4-10.2); CARBON DIOXIDE 28 mmol/L (22-30); CHLORIDE 103 mmol/L (98-107); CREATINE KINASE 48 U/L (55-170); GLUCOSE 99 mg/dL (75-110); POTASSIUM 4.6 mmol/L (3.6-5.0); SODIUM 139.9 mmol/L (137-145); TOTAL PROTEIN 6.9 g/dL (6.3-8.2)
[2017-08-24] MEDS: IPRATROPIUM/ALBUTEROL 0.5-2.5 MG/3 ML AMPUL NEB SCH ×3 (07:55→20:36)
[2017-08-24] MEDS: ESCITALOPRAM OXALATE 10 MG TABLET PO SCH (10:12)
[2017-08-24] MEDS: ASPIRIN 81 MG TABLET, ENT COATED PO SCH (10:12)
[2017-08-24] MEDS: CLOPIDOGREL BISULFATE 75 MG TABLET PO SCH (10:12)
[2017-08-24] MEDS: THIAMINE HCL 100 MG TABLET PO SCH (10:13)
[2017-08-24] MEDS: METOPROLOL SUCCINATE 25 MG TAB.SR.24H PO SCH (10:13)
[2017-08-24] MEDS: LISINOPRIL 10 MG TABLET PO SCH (16:01)
--- NOTE | 2017-08-24 17:02 | PDOC PROGRESS REPORT ---
Subjective Progress Note for:: 08/24/17 Subjective:: No complaints. States that feels better. Review of systems All consistencies except as in subjective. All laboratories and significant diagnostics have been reviewed Reason For Visit: AMS,CELLULITIS OF LLE Physical Exam Vital Signs: Temp Pulse Resp BP Pulse Ox 98.5 F 68 14 125/71 99 08/24/17 14:36 08/24/17 14:36 08/24/17 14:36 08/24/17 14:36 08/24/17 14:36 Intake & Output 08/23/17 08/24/17 08/25/17 06:59 06:59 06:59 Intake Total 777 976 Output Total 400 Balance 377 976 Weight 66.5 kg 66.5 kg General appearance: PRESENT: cooperative, well-developed, well-nourished Head exam: PRESENT: atraumatic, normocephalic Eye exam: PRESENT: conjunctiva pink, EOMI, PERRLA Mouth exam: PRESENT: moist Neck exam: PRESENT: full ROM. ABSENT: JVD, lymphadenopathy, tenderness Respiratory exam: PRESENT: clear to auscultation shahab Cardiovascular exam: PRESENT: RRR. ABSENT: diastolic murmur, systolic murmur GI/Abdominal exam: PRESENT: normal bowel sounds, soft. ABSENT: tenderness Extremities exam: PRESENT: full ROM. ABSENT: pedal edema Musculoskeletal exam: PRESENT: ambulatory Neurological exam: PRESENT: alert, awake, oriented to person, oriented to place Psychiatric exam: PRESENT: appropriate affect, normal mood Skin exam: PRESENT: intact, normal color Results Laboratory Results: 08/24/17 04:33 08/24/17 04:33 08/24/17 08/24/17 04:33 04:33 WBC 8.1 RBC 3.83 L Hgb 11.8 L Hct 35.3 L MCV 92 MCH 30.8 MCHC 33.3 RDW 13.4 Plt Count 199 Seg Neutrophils % 56.5 Lymphocytes % 22.5 Monocytes % 12.6 Eosinophils % 7.5 H Basophils % 0.9 Absolute Neutrophils 4.6 Absolute Lymphocytes 1.8 Absolute Monocytes 1.0 Absolute Eosinophils 0.6 Absolute Basophils 0.1 Sodium 139.9 Potassium 4.6 Chloride 103 Carbon Dioxide 28 Anion Gap 9 BUN 33 H Creatinine 1.05 Est GFR ( Amer) > 60 Est GFR (Non-Af Amer) > 60 Glucose 99 Uric Acid 7.0 Calcium 9.3 Magnesium 2.1 Total Bilirubin 0.2 AST 44 ALT 48 Alkaline Phosphatase 133 H Total Protein 6.9 Albumin 3.4 L 08/18/17 08/20/17 08/24/17 06:03 17:35 04:33 Creatine Kinase 545 H 110 48 L Impressions: Abdomen Ultrasound 08/17/17 00:00 IMPRESSION: BENIGN HEMANGIOMA STABLE FROM PRIOR CT. AORTIC ANEURYSM GROSSLY STABLE FROM PRIOR CT. OTHERWISE UNREMARKABLE RIGHT UPPER QUADRANT ULTRASOUND. Chest X-Ray 08/17/17 10:29 IMPRESSION: Chronic lung changes with no acute cardiopulmonary disease. Foot X-Ray 08/17/17 10:30 IMPRESSION: Osteopenia. Degenerative changes in the 1st metatarsal phalangeal joint. Soft tissue swelling dorsally. No acute fracture. Head CT 08/23/17 00:00 IMPRESSION: MICROVASCULAR ISCHEMIA AND GENERALIZED ATROPHY. NO ACUTE IMAGING FINDINGS IN THE BRAIN EVIDENCE OF ACUTE STROKE: NO. Assessment & Plan - Diagnosis (1) Elevated uric acid in blood Is this a current diagnosis for this admission?: Yes Plan: Patient has a history of gout many years ago. Repeat uric acid level normalized (2) Altered mental status Qualifiers: Altered mental status type: disorientation Qualified Code(s): R41.0 - Disorientation, unspecified Is this a current diagnosis for this admission?: Yes Plan: Resolved with hydration and IV antibiotic treatment. Mental status improved during hospitalization however patient is confused off/on an relates to vascular dementia (3) Cellulitis of left foot Is this a current diagnosis for this admission?: Yes Plan: Resolved. Likely contributing to presentation. Continue Ceftin (4) Dehydration Is this a current diagnosis for this admission?: Yes Plan: Resolved (5) Elevated CPK Is this a current diagnosis for this admission?: Yes Plan: Likely due to alcohol. Trending downward (6) Alcohol abuse Is this a current diagnosis for this admission?: Yes Plan: No signs of withdrawal. Continue thiamine, multivitamins. Patient requires placement (7) COPD (chronic obstructive pulmonary disease) Qualifiers: Emphysema type: unspecified Is this a current diagnosis for this admission?: Yes Plan: Continue nebulizer treatments as needed (8) Tobacco abuse Is this a current diagnosis for this admission?: Yes Plan: Continue nicotine patch. Patient had been made aware for him to consider quitting smoking since he does have a history of coronary artery disease in addition he has a possible mass in his chest which may require further evaluation if deemed needed by his POA (9) CAD (coronary artery disease) Qualifiers: Coronary Disease-Associated Artery/Lesion type: unspecified vessel or lesion type [place] vs. transplanted heart: unspecified whether [place] or transplanted heart Associated angina: without angina Qualified Code(s): I25.10 - Atherosclerotic heart disease of [place] coronary artery without angina pectoris Is this a current diagnosis for this admission?: Yes Plan: Continue Plavix and low dose aspirin (10) Vascular dementia Qualifiers: Dementia behavioral disturbance: without behavioral disturbance Qualified Code(s): F01.50 - Vascular dementia without behavioral disturbance Is this a current diagnosis for this admission?: Yes Plan: Supportive (11) Depression Qualifiers: Depression Type: unspecified Qualified Code(s): F32.9 - Major depressive disorder, single episode, unspecified Is this a current diagnosis for this admission?: Yes Plan: Continue lexapro and remeron - Time Time Spent with patient: 15-24 minutes Medications reviewed and adjusted accordingly: Yes Anticipated discharge: SNF Within: when bed available - Inpatient Certification Based on my medical assessment, after consideration of the patient's comorbidities, presenting symptoms, or acuity I expect that the services needed warrant INPATIENT care.: Yes Medical Necessity: Need Close Monitoring Due to Risk of Patient Decompensation
[2017-08-24] MEDS: ATORVASTATIN CALCIUM 40 MG TABLET PO SCH (22:16)
[2017-08-24] MEDS: MIRTAZAPINE 15 MG TABLET PO SCH (22:16)
[2017-08-25] MEDS: HEPARIN SOD (PORCINE) 5,000 UNIT/ML 1 ML SYRINGE SUBCUT SCH ×3 (05:35→22:14)
[2017-08-25] MEDS: CEFUROXIME 500 MG TABLET PO SCH (05:42)
[2017-08-25] MEDS: IPRATROPIUM/ALBUTEROL 0.5-2.5 MG/3 ML AMPUL NEB SCH (08:09)
[2017-08-25] MEDS: METOPROLOL SUCCINATE 25 MG TAB.SR.24H PO SCH (10:43)
[2017-08-25] MEDS: THIAMINE HCL 100 MG TABLET PO SCH (10:43)
[2017-08-25] MEDS: ESCITALOPRAM OXALATE 10 MG TABLET PO SCH ×2 (10:44→13:40)
[2017-08-25] MEDS: CLOPIDOGREL BISULFATE 75 MG TABLET PO SCH (10:44)
[2017-08-25] MEDS: ASPIRIN 81 MG TABLET, ENT COATED PO SCH (10:44)
--- NOTE | 2017-08-25 12:45 | PDOC PROGRESS REPORT ---
Subjective Progress Note for:: 08/25/17 Subjective:: No complaints. Review of systems All consistencies except as in subjective. All laboratories and significant diagnostics have been reviewed Reason For Visit: AMS,CELLULITIS OF LLE Physical Exam Vital Signs: Temp Pulse Resp BP Pulse Ox 98.8 F 68 20 134/67 H 98 08/24/17 23:15 08/24/17 23:15 08/24/17 23:15 08/24/17 23:15 08/24/17 23:15 Intake & Output 08/24/17 08/25/17 08/26/17 06:59 06:59 06:59 Intake Total 976 677 Balance 976 677 Weight 66.5 kg 66.1 kg General appearance: PRESENT: cooperative, well-developed, well-nourished Head exam: PRESENT: atraumatic, normocephalic Eye exam: PRESENT: conjunctiva pink, EOMI, PERRLA Ear exam: PRESENT: normal external ear exam Mouth exam: PRESENT: moist Neck exam: PRESENT: full ROM. ABSENT: JVD, lymphadenopathy, tenderness Respiratory exam: PRESENT: clear to auscultation shahab Cardiovascular exam: PRESENT: RRR. ABSENT: diastolic murmur, systolic murmur GI/Abdominal exam: PRESENT: normal bowel sounds, soft. ABSENT: tenderness Extremities exam: PRESENT: full ROM. ABSENT: pedal edema Musculoskeletal exam: PRESENT: ambulatory Neurological exam: PRESENT: alert, oriented to person, oriented to place Psychiatric exam: PRESENT: depressed Skin exam: PRESENT: intact, normal color Results Laboratory Results: 08/24/17 04:33 08/24/17 04:33 08/18/17 08/20/17 08/24/17 06:03 17:35 04:33 Creatine Kinase 545 H 110 48 L Impressions: Abdomen Ultrasound 08/17/17 00:00 IMPRESSION: BENIGN HEMANGIOMA STABLE FROM PRIOR CT. AORTIC ANEURYSM GROSSLY STABLE FROM PRIOR CT. OTHERWISE UNREMARKABLE RIGHT UPPER QUADRANT ULTRASOUND. Chest X-Ray 08/17/17 10:29 IMPRESSION: Chronic lung changes with no acute cardiopulmonary disease. Foot X-Ray 08/17/17 10:30 IMPRESSION: Osteopenia. Degenerative changes in the 1st metatarsal phalangeal joint. Soft tissue swelling dorsally. No acute fracture. Head CT 08/23/17 00:00 IMPRESSION: MICROVASCULAR ISCHEMIA AND GENERALIZED ATROPHY. NO ACUTE IMAGING FINDINGS IN THE BRAIN EVIDENCE OF ACUTE STROKE: NO. Assessment & Plan - Diagnosis (1) Elevated uric acid in blood Is this a current diagnosis for this admission?: Yes Plan: Patient has a history of gout many years ago. Repeat uric acid level normalized (2) Altered mental status Qualifiers: Altered mental status type: disorientation Qualified Code(s): R41.0 - Disorientation, unspecified Is this a current diagnosis for this admission?: Yes Plan: Resolved with hydration and IV antibiotic treatment. Mental status improved during hospitalization however patient is confused off/on an relates to vascular dementia (3) Cellulitis of left foot Is this a current diagnosis for this admission?: Yes Plan: Resolved. Likely contributing to presentation. Discontinue Ceftin (4) Dehydration Is this a current diagnosis for this admission?: Yes Plan: Resolved (5) Elevated CPK Is this a current diagnosis for this admission?: Yes Plan: Likely due to alcohol. Trending downward (6) Alcohol abuse Is this a current diagnosis for this admission?: Yes Plan: No signs of withdrawal. Continue thiamine, multivitamins. Patient requires placement (7) COPD (chronic obstructive pulmonary disease) Qualifiers: Emphysema type: unspecified Is this a current diagnosis for this admission?: Yes Plan: Continue nebulizer treatments as needed. To place on Advair (8) Tobacco abuse Is this a current diagnosis for this admission?: Yes Plan: Continue nicotine patch. Patient had been made aware for him to consider quitting smoking since he does have a history of coronary artery disease in addition he has a possible mass in his chest which may require further evaluation if deemed needed by his POA (9) CAD (coronary artery disease) Qualifiers: Coronary Disease-Associated Artery/Lesion type: unspecified vessel or lesion type [place] vs. transplanted heart: unspecified whether [place] or transplanted heart Associated angina: without angina Qualified Code(s): I25.10 - Atherosclerotic heart disease of [place] coronary artery without angina pectoris Is this a current diagnosis for this admission?: Yes Plan: Continue Plavix and low dose aspirin (10) Vascular dementia Qualifiers: Dementia behavioral disturbance: without behavioral disturbance Qualified Code(s): F01.50 - Vascular dementia without behavioral disturbance Is this a current diagnosis for this admission?: Yes Plan: Supportive (11) Depression Qualifiers: Depression Type: unspecified Qualified Code(s): F32.9 - Major depressive disorder, single episode, unspecified Is this a current diagnosis for this admission?: Yes Plan: Decrease lexapro dose and continue remeron - Time Time Spent with patient: 15-24 minutes Medications reviewed and adjusted accordingly: Yes Anticipated discharge: Acute Rehab Within: when bed available - Inpatient Certification Based on my medical assessment, after consideration of the patient's comorbidities, presenting symptoms, or acuity I expect that the services needed warrant INPATIENT care.: Yes I certify that my determination is in accordance with my understanding of Medicare's requirements for reasonable and necessary INPATIENT services [42 CFR 412.3e].: Yes Medical Necessity: Need Close Monitoring Due to Risk of Patient Decompensation
[2017-08-25] MEDS: LISINOPRIL 10 MG TABLET PO SCH (13:40)
[2017-08-25] MEDS: ATORVASTATIN CALCIUM 40 MG TABLET PO SCH (22:12)
[2017-08-25] MEDS: MIRTAZAPINE 15 MG TABLET PO SCH (22:12)
[2017-08-25] MEDS: FLUTICASONE/SALMETEROL DISKUS 250-50 MCG/DOSE IH SCH (22:12)
[2017-08-26] MEDS: HEPARIN SOD (PORCINE) 5,000 UNIT/ML 1 ML SYRINGE SUBCUT SCH ×3 (05:30→21:37)
[2017-08-26] MEDS: THIAMINE HCL 100 MG TABLET PO SCH (09:41)
[2017-08-26] MEDS: METOPROLOL SUCCINATE 25 MG TAB.SR.24H PO SCH (09:41)
[2017-08-26] MEDS: CLOPIDOGREL BISULFATE 75 MG TABLET PO SCH (09:42)
[2017-08-26] MEDS: FLUTICASONE/SALMETEROL DISKUS 250-50 MCG/DOSE IH SCH ×2 (09:42→21:43)
[2017-08-26] MEDS: ASPIRIN 81 MG TABLET, ENT COATED PO SCH (09:42)
--- NOTE | 2017-08-26 13:14 | PDOC PROGRESS REPORT ---
Subjective Progress Note for:: 08/26/17 Subjective:: states he is doing the same. He has no complaints. He is still intermittently pleasantly confused. Reason For Visit: AMS,CELLULITIS OF LLE Physical Exam Vital Signs: Temp Pulse Resp BP Pulse Ox 98.2 F 61 17 115/64 100 08/26/17 11:51 08/26/17 12:19 08/26/17 12:19 08/26/17 11:51 08/26/17 11:51 Intake & Output 08/25/17 08/26/17 08/27/17 06:59 06:59 06:59 Intake Total 677 1099 Balance 677 1099 Weight 65.6 kg 67.4 kg General appearance: PRESENT: no acute distress, well-developed, well-nourished Neck exam: ABSENT: carotid bruit, JVD, lymphadenopathy, thyromegaly Respiratory exam: PRESENT: clear to auscultation shahab. ABSENT: rales, rhonchi, wheezes Cardiovascular exam: PRESENT: RRR. ABSENT: diastolic murmur, rubs, systolic murmur Pulses: PRESENT: normal dorsalis pedis pul Vascular exam: PRESENT: normal capillary refill GI/Abdominal exam: PRESENT: normal bowel sounds, soft. ABSENT: distended, guarding, mass, organolmegaly, rebound, tenderness Extremities exam: PRESENT: full ROM. ABSENT: calf tenderness, clubbing, pedal edema Neurological exam: PRESENT: alert, awake, oriented to person, oriented to place , oriented to time, CN II-XII grossly intact. ABSENT: oriented to situation, motor sensory deficit Skin exam: PRESENT: dry, intact, warm. ABSENT: cyanosis, rash Results Laboratory Results: 08/24/17 04:33 08/24/17 04:33 08/18/17 08/20/17 08/24/17 06:03 17:35 04:33 Creatine Kinase 545 H 110 48 L Impressions: Abdomen Ultrasound 08/17/17 00:00 IMPRESSION: BENIGN HEMANGIOMA STABLE FROM PRIOR CT. AORTIC ANEURYSM GROSSLY STABLE FROM PRIOR CT. OTHERWISE UNREMARKABLE RIGHT UPPER QUADRANT ULTRASOUND. Chest X-Ray 08/17/17 10:29 IMPRESSION: Chronic lung changes with no acute cardiopulmonary disease. Foot X-Ray 08/17/17 10:30 IMPRESSION: Osteopenia. Degenerative changes in the 1st metatarsal phalangeal joint. Soft tissue swelling dorsally. No acute fracture. Head CT 08/23/17 00:00 IMPRESSION: MICROVASCULAR ISCHEMIA AND GENERALIZED ATROPHY. NO ACUTE IMAGING FINDINGS IN THE BRAIN EVIDENCE OF ACUTE STROKE: NO. Assessment & Plan - Diagnosis (1) Alcohol abuse Is this a current diagnosis for this admission?: Yes Plan: does not help his vascular dementia. Out of withdrawal. Just monitoring for now (2) COPD (chronic obstructive pulmonary disease) Qualifiers: Emphysema type: unspecified Plan: continue current medications and monitor, currently stable (3) Cellulitis of left foot Is this a current diagnosis for this admission?: Yes Plan: doing well off ABX, just following (4) Dehydration Is this a current diagnosis for this admission?: Yes Plan: resolved (5) Elevated CPK Is this a current diagnosis for this admission?: Yes Plan: most likely secondary to alcohol abuse, has resolved. No further evaluation for now (6) HTN (hypertension) Qualifiers: Hypertension type: essential hypertension Qualified Code(s): I10 - Essential (primary) hypertension Is this a current diagnosis for this admission?: Yes Plan: stable on current treatment (7) Vascular dementia Qualifiers: Dementia behavioral disturbance: without behavioral disturbance Qualified Code(s): F01.50 - Vascular dementia without behavioral disturbance Is this a current diagnosis for this admission?: Yes Plan: appears to be at baseline. intermittently confused. will need placement - Time Time Spent with patient: 15-24 minutes - Inpatient Certification Based on my medical assessment, after consideration of the patient's comorbidities, presenting symptoms, or acuity I expect that the services needed warrant INPATIENT care.: Yes I certify that my determination is in accordance with my understanding of Medicare's requirements for reasonable and necessary INPATIENT services [42 CFR 412.3e].: Yes Medical Necessity: Significant Comorbidiites Make Outpatient Treatment Too Risky , Need Close Monitoring Due to Risk of Patient Decompensation
[2017-08-26] MEDS: LISINOPRIL 10 MG TABLET PO SCH (14:28)
[2017-08-26] MEDS: ESCITALOPRAM OXALATE 10 MG TABLET PO SCH (14:29)
[2017-08-26] MEDS: MIRTAZAPINE 15 MG TABLET PO SCH (21:42)
[2017-08-26] MEDS: ATORVASTATIN CALCIUM 40 MG TABLET PO SCH (21:43)
[2017-08-27] MEDS: HEPARIN SOD (PORCINE) 5,000 UNIT/ML 1 ML SYRINGE SUBCUT SCH ×3 (05:24→14:05)
[2017-08-27] MEDS: ASPIRIN 81 MG TABLET, ENT COATED PO SCH (09:46)
[2017-08-27] MEDS: THIAMINE HCL 100 MG TABLET PO SCH (09:46)
[2017-08-27] MEDS: METOPROLOL SUCCINATE 25 MG TAB.SR.24H PO SCH (09:47)
[2017-08-27] MEDS: CLOPIDOGREL BISULFATE 75 MG TABLET PO SCH (09:47)
[2017-08-27] MEDS: FLUTICASONE/SALMETEROL DISKUS 250-50 MCG/DOSE IH SCH (09:48)
--- NOTE | 2017-08-27 11:04 | PROGRESS NOTE E ---
Progress Note NAME: MANUEL FUENTES : 1940 AGE: 77Y DATE: 08/27/2017 ROOM: 428 SUBJECTIVE: The patient is lying in bed and answers yes or no, but is very flat. The patient's responsiveness has been intermittent according to nursing staff. At times, the patient can be quite conversational, other is quite flat. The patient has had no reported episodes of vomiting or diarrhea. The patient has been accepted to [facility] for rehab on Sunday, however, this was Sunday evening after 6:00. Given that the time has passed since that time, [facility] once again wants reauthorization and therefore therapy notes have to be sent back in, therefore, further delaying the patient's discharge to [facility] at this time. Therefore, Social Work is having to redo the patient's prior authorization with [facility]. REVIEW OF SYSTEMS: Full review of systems cannot be appreciated given the patient's mental status. MEDICATIONS: Medications have been reviewed. OBJECTIVE: GENERAL: The patient is a 77-year-old male who is awake, alert, unable to fully assess orientation. He does not appear to be distressed. VITAL SIGNS: Temperature is 98.3, pulse 56, respirations 16, blood pressure 122/66, oxygen saturation 99% on room air. SKIN: Warm and dry. No rashes, not diaphoretic. HEENT: Pupils equal and reactive to light and accommodation. Conjunctivae pink. There is no evidence of JVP. CHEST: Clear and symmetrical, nonlabored. ABDOMEN: Soft, nontender, nondistended. BACK: No CVA tenderness. EXTREMITIES: No clubbing, cyanosis, or edema. PSYCHIATRIC: The patient has a very flat affect. DIAGNOSTICS/LAB VALUE: Hematology done on 08/24/2017: WBC 8.1, hemoglobin 12.8, hematocrit 35.3%, platelet count is 195. Chemistries done on 08/24/2017: Sodium 139, potassium 4.6, chloride 103, carbon dioxide 28, BUN 33, creatinine 0.05, and glucose 99, calcium is 9.3, magnesium 2.1. Bilirubin is 22, AST 44, ALT 40, alkaline phosphatase 133. CK 48. Protein is 3.9, albumin 3.4. IMPRESSION AND PLAN: 1. CHRONIC OBSTRUCTIVE PULMONARY DISEASE. The patient is on a current exacerbation. 2. CELLULITIS OF THE LEFT LOWER EXTREMITY. The patient has completed an antibiotic course and continues to improve. 3. DEHYDRATION. This resolved. 4. ALCOHOL DEPENDENCY. The patient has completed his withdrawal and will currently monitor. Continue the vitamins. 5. VASCULAR/DEMENTIA. This further exacerbates the patient's alcohol issues. 6. HYPERTENSION. Continue home medications. DISPOSITION: THE PATIENT IS A DO NOT RESUSCITATE/DO NOT INTUBATE. Pending patient's symptomatology and diagnostic findings, the patient can go to rehab as soon as a bed is available. The patient will be transitioned to the [facility] after completion of such, currently waiting for reauthorization for [facility]. Hopefully, the patient can go tomorrow. Time spent on this followup including assessment and plan, physical examination, patient education, and review of records is 25 minutes. DICTATING PHYSICIAN: HLEENA ROWE NP [id number] PHY#: [id number] ID: [id number] JOB#: [id number] ACCT: [id number] cc: >
[2017-08-27 12:08] VITALS: BP 111/56
--- NOTE | 2017-08-27 12:39 | TRANSFER SUMMARY E ---
Transfer Summary NAME: MANUEL FUENTES : 1940 AGE: 77Y ADMITTED: 08/17/2017 TRANSFERRED: 08/27/2017 CODE STATUS: DO NOT RESUSCITATE/DO NOT INTUBATE. PRIMARY CARE PROVIDER: ONI. CONDITION: Stable. DIET: Cardiac, as tolerated. ACTIVITY: As per rehab standard. DISCHARGE DIAGNOSES: Includes: 1. Cellulitis of the left lower extremity, has completed antibiotic course. 2. Alcohol dependency. The patient has completed withdrawal. 3. Vascular dementia. 4. Dehydration. This is resolved. 5. Chronic obstructive pulmonary disease. 6. Hypertension. 7. Acute encephalopathy secondary to infectious process. The patient is now at baseline. DISCHARGE MEDICATIONS: Include: 1. Thiamine 100 mg p.o. daily, 30 tablets, 0 refills. 2. Lisinopril 10 mg p.o. daily. 3. Advair 250/50 one puff inhalation q. 12 hours. 4. Lexapro 5 mg p.o. daily, 30 tablets, 0 refills. 5. Remeron 15 mg p.o. q. hour of sleep. 6. Toprol XL 25 mg p.o. daily. 7. Plavix 75 mg p.o. daily. 8. Lipitor 40 mg p.o. q. hour of sleep. 9. Aspirin 81 mg p.o. daily. DIAGNOSTICS: Lab values are as follows: Hematology obtained on 08/24/2017: WBCs are 8.1, hemoglobin is 11.8, hematocrit is 35.3. platelet count is 199,000. Chemistry obtained on 08/24/2017: Sodium is 139, potassium 4.6, chloride is 103, carbon dioxide 28, BUN 33, creatinine is 1.05, glucose 99, uric acid is 7.0, calcium is 9.3, phosphorus 5.0, magnesium is 2.1, bilirubin is 0.2. AST 44, ALT is 48, Alk phos 133. Ammonia is 8.7. CK 48, CK-MB is 5. Troponin is 0.012. Total protein 6.9, albumin 3.4, lipase is 256, TSH is 0.58. Urinalysis obtained on 08/17/2017: Color straw, appearance clear. PH is 5.0, specific gravity is 1.006. Protein negative, glucose negative, ketones negative, occult blood large, nitrate negative, bilirubin negative, urobilinogen is negative, leukocyte esterase is negative. WBCs 1, RBCs 52, casts 5, mucus rare, ascorbic acid is negative. Microbiology: Blood culture obtained on 08/17/2017 reveal no growth. Abdominal ultrasound obtained on 08/17/2017 reveals benign hemangioma with aortic aneurysm, which is grossly stable. Chest x-ray obtained on 08/17/2017 reveals chronic lung changes with no acute cardiopulmonary disease. Left foot x-ray obtained on 08/17/2017 reveals osteopenia, degenerative changes of the first metatarsal joint, soft tissue swelling dorsally, but no evidence of acute fracture. Head CT obtained on 08/17/2017 reveals chronic changes of atrophy and microvascular ischemia. Head CT obtained on 08/23/2017 reveals microvascular ischemia and generalized atrophy, no acute changes. EKG obtained on 08/17/2017 reveals a right bundle branch block. HISTORY OF PRESENT ILLNESS: The patient is a 77-year-old male with a past medical history of hypertension. The patient presented to the emergency department with a chief complaint of altered mental status. The patient was brought into the emergency department by a close female friend who checks up on him on a regular basis. She stated that she wanted to check on the patient and found him sitting was unable to determine how long he had been in those circumstances. She went head and cleaned the patient up because he had defecated on himself, but felt something was not right, so she brought the patient to the emergency department to be checked. Upon evaluation in the emergency department, the patient was noted to have multiple complaints, including redness and swelling of the lower extremity. In addition, the patient was unable to provide much history due to his mental status, and the patient was referred to the hospitalist for admission and management. HOSPITAL COURSE: The patient was admitted to the medical unit. The patient was placed on antibiotic coverage and completed a 10-day course of antibiotics with improvement of the patient's cellulitis. The patient's mental status did improve, although at times it does appear to wax and wane. The patient does have findings that are consistent with vascular dementia, which are most likely aggravated by the patient's apparent alcohol dependency. The patient is post withdrawal and currently appears to be at baseline, and the patient and family are agreeable to rehab. PHYSICAL EXAMINATION: GENERAL: On examination, the patient is a well-developed, reasonably nourished 77-year-old male who is awake, alert, unable to fully assess orientation, does not appear to be distressed. VITAL SIGNS: Temperature is 98.3, pulse 58, respirations 18, blood pressure is 146/71, oxygen saturation 100% on room air. SKIN: Warm and dry. No rash. He is not diaphoretic. He is quite pale. HEENT: Pupils are reactive. No evidence of JVP. Glasses are in place. CARDIOVASCULAR SYSTEM: Heart is regular. There is no murmur or rub. CHEST: Clear, symmetrical, unlabored, but diminished. ABDOMEN: Soft, nontender, nondistended. EXTREMITIES: No clubbing, cyanosis, edema. PSYCHIATRIC: The patient does have a flat affect. DISCHARGE PLANNING: The patient will be received to rehab as the family would [facility]. Time spent on this discharge including assessment, plan, physical examination, patient education, and review of records is 35 minutes. DICTATING PHYSICIAN: HELENA ROWE NP [id number] PHY#: [id number] ID: [id number] JOB#: [id number] ACCT: [id number] cc:HELENA ROWE NP > MTDD
[2017-08-27] MEDS: ESCITALOPRAM OXALATE 10 MG TABLET PO SCH (14:01)
[2017-08-27] MEDS: LISINOPRIL 10 MG TABLET PO SCH (14:03)
== END 2017-08-27 16:13 | DRG 602 ==
LOC: ER 09:35 → EH 13:40 → 4S 19:45
PROVIDERS: ADMIT Family Medicine; ATTEND Family Medicine
PROC: 3E0F73Z Introduction of Anti-inflammatory into Respiratory Tract, Via Natural or Artificial Opening (ICD-10-PCS; principal; 2017-08-17)
DX: L03.116 Cellulitis of left lower limb (principal); G93.49 Other encephalopathy; E86.0 Dehydration; J44.9 Chronic obstructive pulmonary disease, unspecified; I10 Essential (primary) hypertension; F10.20 Alcohol dependence, uncomplicated; F01.50 Vascular dementia, unspecified severity, without behavioral disturbance, psychotic disturbance, mood disturbance, and anxiety; M19.90 Unspecified osteoarthritis, unspecified site; I25.10 Atherosclerotic heart disease of native coronary artery without angina pectoris; E79.0 Hyperuricemia without signs of inflammatory arthritis and tophaceous disease; F17.200 Nicotine dependence, unspecified, uncomplicated; F32.9 Major depressive disorder, single episode, unspecified; Z66 Do not resuscitate; Z79.82 Long term (current) use of aspirin; Z79.02 Long term (current) use of antithrombotics/antiplatelets; Z79.899 Other long term (current) drug therapy; Z95.5 Presence of coronary angioplasty implant and graft
CPT/HCPCS: 36415; 51702; 70450; 71046; 76705; 80053; 81001; 82140; 82550; 82553; 82962; 83690; 83735; 84100; 84443; 84484; 84550; 85025; 87040; 93005; 93010; 94640; 96365; 99285; G8978-GP; G8979-GP; G8987-GO; G8988-GO; J0696; J1644; J2920; J3490; J7030; J7120; J7512; J7620